=== PATIENT | female | born 1955 | race African-American/Black ===

== ENCOUNTER 2016-05-25 08:30 | Inpatient (IN) ==
--- NOTE | 2016-05-25 09:42 | Emergency Department Note ---
Arrival - Arrival Chief Complaint: Upper Respiratory Stated Complaint: cough,pain,wheezing ED Nursing Triage Note: c/o having coughing and congestion x 2 weeks, denies increase temp., aching all over, + chillls Mode of Arrival: Wheelchair Limitations: No Limitations Source: Patient Time Seen by Provider: 05/25/16 09:26 - History of Present Illness HPI Narrative: This is a 61-year-old white female who states she has a "cold" for approximately 1 month. She states that she has had some cough and congestion but just recently has started having chills. She states the cough is productive but the sputum is clear. She states that she has not checked her fever at home but is just had chills. No other problems noted or reported Onset (ago): month(s) (1) Severity: mild Allergies/Adverse Reactions: Allergies Allergy/AdvReac Type Severity Reaction Status Date / Time blue dye Allergy Vomiting Verified 08/06/15 16:57 Home Medications: Home Medications Medication Instructions Recorded Confirmed Type Unable To Obtain [Unable to Obtain] 05/25/16 05/25/16 History Review of System - Review of System 12 point system: reviewed and no additional remarkable complaints except as stated - Review of System Constitutional: Present: as per HPI, chills. Absent: fever Head/Ears/Nose/Throat: Present: see HPI Respiratory: Present: as per HPI, cough Medical,Surgical,& Family Hx - Medical History Cardio: History of: CHF, Hypertension Endocrine: History of: Diabetes Mellitus (IDDM) Renal: History of: Renal Failure No history of: Dialysis (has not started but has graft to left arm) - Family History Family History: Reports;: Family Diabetes - Social History Smoking Status: Never smoker Frequency of Alcohol Use: None Type of Drug Use: None Exam Vital Signs: Vital Signs Temperature 97.9 F 05/25/16 08:34 Pulse Rate 100 H 05/25/16 08:34 Respiratory Rate 16 05/25/16 09:38 Blood Pressure 165/74 05/25/16 08:34 O2 Sat by Pulse Oximetry 100 05/25/16 08:34 - General General appearance: alert, in no apparent distress - Head Head exam: Present: atraumatic, normocephalic, normal inspection - Eye Eye exam: Present: normal appearance, PERRL, EOMI - ENT ENT exam: Present: normal exam, normal oropharynx - Neck Neck exam: Present: normal inspection, full ROM - Chest Chest inspection: Present: normal inspection, symmetric chest wall rise - Respiratory Respiratory exam: Absent: respiratory distress, wheezes - Cardiovascular Cardiovascular exam: Present: regular rate, normal rhythm, normal heart sounds - Abdominal Exam Abdominal exam: Present: soft, normal bowel sounds - Extremities Exam Extremities exam: Present: normal inspection - Back Exam Back exam: Present: normal inspection - Neurological Exam Neurological exam: Present: alert, oriented X3 - Psychiatric Psychiatric exam: Present: normal affect, normal mood - Skin Skin exam: Present: warm, dry, intact Course - Consultations Consultation #1: I've spoken about the patient with Estelle hospitalist CERTIFIED ALCOHOL AND DRUG COUNSELOR Time: 11:20 Results - Labs CBC & BMP: 05/25/16 09:51 05/25/16 09:51 Lab Results: I have reviewed the patients labs - Diagnostic Findings Procedure: Chest x-ray: image reviewed by me, report reviewed by me (diffuse bilat infiltrates vs. edema) Disposition Clinical Impression: Chronic renal failure, Anemia, Pulmonary infiltrates on CXR Case discussed with: patient Disposition: Still a Patient
[2016-05-25 10:06] LABS: Basophils % 0.1 % (0.0-0.8); Eosinophils # 0.1 10*3/uL (0.0-0.87); Eosinophils % 1.8 % (0.00-10.9); Hematocrit 25.3 VOL% (35.7-47.0); Hemoglobin 7.7 GM/DL (12.0-16.0); Immature Granulocytes % 0.4 %; Immature Granulocytes Absolute 0.03 #; Lymphocytes % 14.6 % (21.3-54.2); Mean Corpuscular HGB Conc 30.4 GM/DL (32-36); Mean Corpuscular Hemoglobin 29 PG (27-34); Mean Corpuscular Volume 94.1 FL (87-102); Mean Platelet Volume 8.9 FL (9.6-12.0); Monocytes # 0.5 10*3/uL (0.11-0.8); Monocytes % 7.2 % (1.7-12.7); Neutrophils # 5.1 10*3/uL (1.4-7.4); Neutrophils % 75.9 % (38.7-73.9); Platelet Count 209 10*3/uL (130-400); Red Blood Count 2.69 10*6/uL (3.8-5.5); Red Cell Distribution Width 16.3 % (9.3-17.3); White Blood Count 6.8 10*3/uL (4.5-13.71)
--- NOTE | 2016-05-25 10:14 | XRay Report ---
History is coughing and fever Comparison 10/22/2009 The heart is enlarged. There is mild chronic vascular prominence There has been interval development of increasing diffuse bilateral reticular and hazy pulmonary opacities without more focal consolidation Impression: Interval development of diffuse bilateral infiltrates versus edema PROCEDURE INTERPRETED AT [facility] DEPARTMENT OF RADIOLOGY Final Report Signed by: Dr. Gisell Palacios
[2016-05-25 10:59] LABS: Calcium 9.5 MG/DL (8.5-10.1); Osmolality,Calculated 314.3 MOS/KG (273-304); Potassium 5.4 MMOL/L (3.5-5.1)
[2016-05-25] MEDS ORDERED: LACTULOSE 20 GM/30 ML UDCUP PO PRN (11:41)
[2016-05-25] MEDS ORDERED: ACETAMINOPHEN 325 MG TABLET PO PRN (11:41)
[2016-05-25] MEDS ORDERED: MORPHINE 2 MG/1 ML SYRINGE IV PRN (11:41)
[2016-05-25] MEDS ORDERED: DEXTROSE 50% 25 GM/50 ML VIAL IV PRN (12:10)
[2016-05-25] MEDS ORDERED: GLUCAGON 1 MG VIAL IM PRN (12:10)
--- NOTE | 2016-05-25 13:01 | Ultrasound Report ---
History is bilateral lower extremity swelling Bilateral lower extremity venous Doppler performed with grayscale, spectral Doppler, and color flow analysis performed and interpreted. No evidence of echogenic, noncompressible thrombus seen in either common femoral, superficial femoral, popliteal, or saphenous veins There are bilateral popliteal cysts measuring 3.3 x 1.1 CM in the right and 2.7 x 1.1 CM on the left Impression: Bilateral popliteal cysts. No evidence of DVT seen in either lower extremity. PROCEDURE INTERPRETED AT [facility] DEPARTMENT OF RADIOLOGY Final Report Signed by: Dr. Gisell Palacios
--- NOTE | 2016-05-25 13:17 | Hospitalist History & Physical ---
Assessment and Plan - Time spent with patient Time spent with patient: Greater than 30 minutes (1) Anemia Status: Acute Assessment and plan: we will admit to telemetry, Consult Dr. Farah to see her, she may require dialysis, todays creatinine same as last checked at Dr. Carl office She is hyperkalemic, Kayexelate has been ordered She is anemic, but is not presently symptomatic, we will wait until Dr. Farah sees the pt, She presents as pulmonary edema, we will do an ECHO, await Lasix orders until Dr. Farah sees her Doppler lower extremities due to increased swelling further labs, lipids, MG, UA PRN meds, DVT prophylaxis routine labs in AM further plan and addendum to follow per Dr. Devine Current Visit: Yes (2) Chronic renal failure Status: Acute Current Visit: Yes History of Present Illness Chief complaint: shortness of breath History of present illness: Ms. Lares is a 61 year old female who presents to the Er today with shortness of breath and cold s/s. She states she has been feeling bad for nearly a month and not gotten any better. She described a dry, hacking, non productive cough. She admits to chills, vomiting and shortness of breath, worse with exertion. denies chest pain, denies headache, diarrhea, or dysuria. She is noted to have 2 -3 + pitting edema to her lower extremities. She says this is worse than her normal, left leg is notably more swollen than the right. She is a pt of Dr. Martinez, last saw him one month ago. Also being follow by Dr. Farah for kidney failure, has been told she is close to needing dialysis but has not started it yet. She says she has chronic anemia and comes to the hospital every few weeks for "shots." She is unsure what kind of shots these are. Has never required a blood transfusion. She tells me that Dr. Martinez told her she probably has CHF but she has never had an ECHO or seen cardiology. Ms. Lares is seen sitting on the side of the bed, minimal conversational dyspnea noted. Her flu was negative today but she looks like she doesn't feel well. Lab work today reveals that she is anemic at 7/24, hyperkalemic with K of 5.4, and also in renal failure. She has not been admitted here for quite some time, there are no old records for review. I spoke with the nurse at Dr. Carl office, her last creatinine there was 6.9 this past December. She has a PMH of CKD, HTN, DM, and CHF. She does not smoke drink or use drugs. Home Medications Medication Instructions Recorded Confirmed Type Calcium Carbonate [Tums Chew Tab] 750 mg PO Q2H PRN 05/25/16 05/25/16 History Carvedilol 6.25 mg PO BID 05/25/16 05/25/16 History Dorzolamide/Timolol Oph Soln 1 drop BOTH EYES BID 05/25/16 05/25/16 History [Cosopt] Doxazosin [Cardura] 4 mg PO DAILY 05/25/16 05/25/16 History Fexofenadine [Mellissa] 180 mg PO DAILY 05/25/16 05/25/16 History Furosemide Tab [Lasix Tab] 40 mg PO DAILY 05/25/16 05/25/16 History Levothyroxine Tab [Synthroid Tab] 25 mcg PO DAILY 05/25/16 05/25/16 History Lisinopril/Hydrochlorothiazide 1 each PO DAILY 05/25/16 05/25/16 History [Zestoretic 20-12.5 mg Tablet] Sodium Bicarb Tab 1,300 mg PO BID 05/25/16 05/25/16 History amLODIPine [Norvasc] 10 mg PO DAILY 05/25/16 05/25/16 History Allergies Allergy/AdvReac Type Severity Reaction Status Date / Time blue dye Allergy Vomiting Verified 08/06/15 16:57 Medical,Surgical,& Family Hx - Medical History Cardio: History of: CHF, Hypertension Endocrine: History of: Diabetes Mellitus (IDDM) Renal: History of: Renal Failure No history of: Dialysis (has not started but has graft to left arm) - Family History Family History: Reports;: Family Diabetes - Social History Smoking Status: Never smoker Frequency of Alcohol Use: None Type of Drug Use: None 12 point system: reviewed and no additional remarkable complaints except as stated Exam - Constitutional General appearance: no acute distress, over weight - Head Head exam: Present: normal inspection, normocephalic - Eye Eye exam: Present: EOMI. Absent: scleral icterus Pupils: Present: GABRIELA, normal accommodation - ENT ENT exam: Present: normal exam, normal oropharynx - Neck Neck exam: Present: normal inspection. Absent: lymphadenopathy - Respiratory Respiratory exam: Present: wheezes (mild expirational on right), other (coarse bibasilar, worse with expiration) - Cardiovascular Cardiovascular exam: Present: regular rate and rhythm. Absent: tachycardia - GI/Abdominal GI/Abdominal exam: Present: normal bowel sounds, soft. Absent: tenderness - Extremities Exam Extremities exam: Present: normal inspection, full ROM. Absent: edema - Back Exam Back exam: Present: normal inspection. Absent: muscle spasm - Neurological Exam Neurological exam: Present: alert, oriented X3 - Psychiatric Psychiatric exam: Present: normal affect, normal mood - Skin Skin exam: Present: normal color, warm, dry Results - Labs CBC & BMP: 05/25/16 09:51 05/25/16 09:51 Lab Results: I have reviewed the past 24 hour labs Quality Measures - VTE Contraindication to Pharmacological VTE Prophylaxis: Thrombocytopenia
[2016-05-25 13:59] LABS: Magnesium 2.4 MG/DL (1.8-2.4); Risk Ratio 3.49; VLDL CHOLESTEROL 19.6 MG/DL
[2016-05-25] MEDS: SODIUM POLYSTYRENE SULFATE 15 GM/60 ML BOTTLE PO SCH ×2 (14:04→22:07)
--- NOTE | 2016-05-25 15:17 | Nephrology Consult Note ---
History of Present Illness Chief complaint: shortness of breath and cough in a patient with chronic kidney disease History of present illness: Ms. Lares is a 61 year old female who was admitted this morning for shortness of breath and cough. The patient states she is been having some rattling in her chest past few days as well as cough. She also reports aching all over. She has some associated shortness of breath. She also describes increased swelling in her legs. Patient states the cough has been productive of whitish sputum. Her shortness of breath and cough for are worse with laying flat in bed. The patient states she takes a water pill at home and states she has been compliant with this. We were asked see the patient for increased BUN/ creatinine creatinine. The patient's creatinine on admission was around 7.1 mg/ dL in December 2015 the patient was noted to have a creatinine of 6.9. Patient also has a potassium of around 5.6. The patient's hematocrit is around 25%. The patient denies any fever she does state she has been having some shaking chills. ROS: Head - denies headaches ENT - denies sore throat Lymphatics - denies lymphadenopathy Hematology - denies bleeding problems Heart - denies chest pain Lungs -positive shortness of breath Abdomen - denies abdominal pain Musculoskeletal - denies arthritis Skin - denies rash Neurology - denies stroke General - denies fever PE: General: in no acute distress Eyes: Pupils are round and reactive, conjunctivae are clear ENT: Nose is clear, O/P is benign Neck: Supple, no thyromegaly Lymphatics: No cervical, supraclavicular or axillary adenopathy Heart: Regular rate and rhythm, 2+ pretibial edema as well as some mild edema in her thighs Lungs: Clear to auscultation anteriorly, chest expansion symmetric Abdomen: Soft, normoactive bowel sounds, no hepatomegaly Musculoskeletal: No joint erythema or effusions or joint asymmetry Skin: Normal turgor, normal hydration, no rash Neuro/Psych: Alert and cooperative with fair insight Home Medications Medication Instructions Recorded Confirmed Type Calcium Carbonate [Tums Chew Tab] 750 mg PO Q2H PRN 05/25/16 05/25/16 History Carvedilol 6.25 mg PO BID 05/25/16 05/25/16 History Dorzolamide/Timolol Oph Soln 1 drop BOTH EYES BID 05/25/16 05/25/16 History [Cosopt] Doxazosin [Cardura] 4 mg PO DAILY 05/25/16 05/25/16 History Fexofenadine [Mellissa] 180 mg PO DAILY 05/25/16 05/25/16 History Furosemide Tab [Lasix Tab] 40 mg PO DAILY 05/25/16 05/25/16 History Levothyroxine Tab [Synthroid Tab] 25 mcg PO DAILY 05/25/16 05/25/16 History Lisinopril/Hydrochlorothiazide 1 each PO DAILY 05/25/16 05/25/16 History [Zestoretic 20-12.5 mg Tablet] Ofloxacin [Ofloxacin 0.3% Oph Soln] 1 drop BOTH EYES QID 05/25/16 05/25/16 History Sodium Bicarb Tab 1,300 mg PO BID 05/25/16 05/25/16 History amLODIPine [Norvasc] 10 mg PO DAILY 05/25/16 05/25/16 History Allergies Allergy/AdvReac Type Severity Reaction Status Date / Time blue dye Allergy Vomiting Verified 08/06/15 16:57 Medical,Surgical,& Family Hx - Medical History Cardio: History of: CHF, Hypertension Endocrine: History of: Diabetes Mellitus (IDDM), Diabetes Mellitus (NIDDM) Renal: History of: Renal Failure No history of: Dialysis (has not started but has graft to left arm) - Surgical History Additional Surgical History: Left arm fistula placement - Family History Family History: Reports;: Family Diabetes - Social History Smoking Status: Never smoker Frequency of Alcohol Use: None Type of Drug Use: None Exam - Vital Signs Vital signs: Period Temp Pulse Resp BP Sys/[place] Pulse Ox Last 24 Hr 68-88 20-20 156/77 97 Results - Labs CBC & BMP: 05/25/16 09:51 05/25/16 09:51 Assessment and Plan (1) Chronic renal failure Status: Acute Assessment and plan: This patient's creatinine is about what it was 6 months ago however she has significant volume overload and her potassiums a little bit worse than it was 6 months ago, she also has metabolic acidosis that is about the same as it was 6 months ago. She seems to be asymptomatic from a uremic standpoint. She states she has had some vomiting but I think she was talking about coughing up cold. We'll see if we can get her better from a shortness of breath standpoint without worsening her renal failure but I have some doubts of whether will be able to pull this off. Current Visit: Yes (2) Shortness of breath Status: Acute Assessment and plan: This patient has marked lower extremity edema and some increased interstitial markings in her lungs. It sounds like she's had some cold symptoms with body aches all over and a persistent cough which confuses the picture whether this is bronchitis versus pulmonary edema related to her volume overload. Her white count is normal although she does have a little bit of a left shift on her differential. I think it's reasonable to try a her on some IV Lasix. Current Visit: Yes (3) Volume overload Status: Acute Current Visit: Yes (4) Hyperkalemia Status: Acute Current Visit: Yes (5) Metabolic acidosis Status: Acute Assessment and plan: I'll start her on some sodium bicarbonate Current Visit: Yes (6) Anemia Status: Acute Assessment and plan: We may want to try and transfuse her later in the hospitalization once we've got her breathing improved Current Visit: Yes
[2016-05-25] MEDS: FUROSEMIDE 40 MG/4 ML VIAL IV SCH (16:28)
[2016-05-25] MEDS: INSULIN LISPRO 100 UNIT/ML SUBCUT SCH ×2 (16:33→22:13)
[2016-05-25] MEDS: LEVOFLOXACIN 250 MG TABLET PO SCH (16:52)
[2016-05-25] MEDS: SODIUM BICARBONATE 650 MG TABLET PO SCH (22:06)
--- NOTE | 2016-05-25 22:07 | ECHO Report ---
Deidre Lares Exam Date: 05/25/2016 12:45 Referring Physician: Technologist: Alejandro CLAIRE Age: 61 Ht (in): Wt (lb): Gender: F Exam Location: [facility] Echo Indications: SOB BP: / HR: Rhythm: Sinus Technical Quality: Fair IMPRESSIONS Normal LV systolic function, ejection fraction 55%. Grade 1/4 diastolic dysfunction. Mild concentric left ventricular hypertrophy. Mild biatrial enlargement. Mildly dilated right ventricle. Mild tricuspid regurgitation. Moderate tricuspid regurgitation. Mild pulmonary hypertension with pulmonary artery pressure estimated at 44 mmHg plus right atrial pressure. Small pericardial effusion. MEASUREMENTS (Male / Female) Normal Values 2D ECHO LV Diastolic Diameter PLAX 4.8 cm 4.2 - 5.9 / 3.9 - 5.3 cm LV Systolic Diameter PLAX 3.2 cm LV Fractional Shortening PLAX 33.1 % IVS Diastolic Thickness 1.3 cm 0.6 - 1.0 / 0.6 - 0.9 cm LVPW Diastolic Thickness 1.2 cm 0.6 - 1.0 / 0.6 - 0.9 cm RV Internal Dim ED PLAX 3.3 cm Aortic Root Diameter 2.9 cm LA Systolic Diameter LX 4.7 cm 3.0 - 4.0 / 2.7 - 3.8 cm DOPPLER TR Peak Velocity 333.0 cm/s TR Peak Gradient 44.4 mmHg FINDINGS Left Ventricle Moderately increased septal wall thickness. Mildly increased posterior wall thickness. Mild concentric left ventricular hypertrophy with diastolic dysfunction. Left ventricular ejection fraction is estimated at 50-55 %. Right Ventricle Mildly increased right ventricular size. Right Atrium The right atrium is mildly enlarged. Left Atrium Mildly increased left atrial diameter. Mitral Valve Mildly thickened mitral valve with mild mitral regurgitation. Aortic Valve Aortic valve sclerosis without stenosis or regurgitation. Tricuspid Valve Morphologically normal tricuspid valve. Moderate tricuspid valve regurgitation. Tricuspid regurgitation velocities suggest a PAP of 44.4 mmHg + RAP. Pulmonic Valve Morphologically normal pulmonic valve. Pericardium Small pericardial effusion. Aorta Normal size aortic root and proximal ascending aorta. Lucia Fitch MD (Electronically Signed) Final Date: 25 May 2016 22:06
[2016-05-26 06:30] LABS: Basophils % 0.1 % (0.0-0.8); Eosinophils # 0.2 10*3/uL (0.0-0.87); Eosinophils % 2.1 % (0.00-10.9); Hematocrit 22.8 VOL% (35.7-47.0); Immature Granulocytes % 0.7 %; Immature Granulocytes Absolute 0.05 #; Lymphocytes # 0.9 10*3/uL (1.4-4.0); Lymphocytes % 12.7 % (21.3-54.2); Mean Corpuscular HGB Conc 30.7 GM/DL (32-36); Mean Corpuscular Hemoglobin 29 PG (27-34); Mean Corpuscular Volume 93.4 FL (87-102); Mean Platelet Volume 9.8 FL (9.6-12.0); Monocytes # 0.6 10*3/uL (0.11-0.8); Monocytes % 7.9 % (1.7-12.7); Neutrophils # 5.4 10*3/uL (1.4-7.4); Neutrophils % 76.5 % (38.7-73.9); Platelet Count 207 10*3/uL (130-400); Red Blood Count 2.44 10*6/uL (3.8-5.5); Red Cell Distribution Width 16.1 % (9.3-17.3); White Blood Count 7.1 10*3/uL (4.5-13.71)
[2016-05-26] MEDS: SODIUM POLYSTYRENE SULFATE 15 GM/60 ML BOTTLE PO SCH (06:53)
[2016-05-26 07:04] LABS: Albumin 2.7 G/DL (3.4-5.0); Bilirubin,Total 0.8 MG/DL (0.2-1.0); Calcium 9.2 MG/DL (8.5-10.1); Potassium 4.9 MMOL/L (3.5-5.1)
[2016-05-26] MEDS: ONDANSETRON 4 MG/2 ML VIAL IV PRN ×2 (09:03→21:03)
[2016-05-26] MEDS: FUROSEMIDE 40 MG/4 ML VIAL IV SCH ×2 (09:04→16:44)
[2016-05-26] MEDS: PANTOPRAZOLE 40 MG TABLET PO SCH (09:04)
[2016-05-26] MEDS: SODIUM BICARBONATE 650 MG TABLET PO SCH ×2 (09:04→20:05)
--- NOTE | 2016-05-26 09:35 | Hospitalist Progress Note ---
Assessment and Plan (1) Chronic renal failure Status: Acute Assessment and plan: Impression: 1. Chronic kidney disease, stage V 2. Hyperkalemia and volume overload, likely related to #1 3. Anemia, likely related to #1 Plan: She might benefit from transfusion, but I hesitate to do this unless we are ready for dialysis. We'll await nephrology decision in that regard. Otherwise , continue current care. Follow lab. This note was completed using [employer] voice recognition software. There may be manga artist errors as a result. Current Visit: Yes Hospitalist: Subjective Interval history: Follow-up chronic kidney disease with possible volume overload. The patient complains of some edema in the left lower extremity. This was present on admission, and a venous Doppler was negative. She apparently has stage V chronic kidney disease which is unchanged over the past few months, and there is some question as to whether or not we need to institute dialysis. Nephrology is following the patient along with us. She complains of some pain in both knees. She denies any worsening dyspnea or chest discomfort. Exam - Constitutional Vitals: Period Temp Pulse Resp BP Sys/[place] Pulse Ox Last 24 Hr 97.6 F-99.2 F 68-107 16-21 153-177/68-81 93-97 Heart is regular with distant tones and a 1/6 systolic ejection murmur. She has decreased breath sounds in both bases. There is a millimeter or 2 of edema in the left lower extremity. Both knees are tender to palpation, but she doesn't have an effusion on either knee. Results - Labs CBC & BMP: 05/26/16 05:40 05/26/16 05:40 Lab Results: I have reviewed the past 24 hour labs (creatinine is fairly stable. Hemoglobin is trending down slowly.) Quality Measures - VTE Contraindication to Pharmacological VTE Prophylaxis: Thrombocytopenia
[2016-05-26] MEDS: INSULIN LISPRO 100 UNIT/ML SUBCUT SCH ×4 (10:06→21:08)
--- NOTE | 2016-05-26 10:57 | Nephrology Progress Note ---
Nephrology - PN: Subj Interval history: Patient complains of pain in her left knee, review of systems pulmonary-she states she is breathing okay Physical exam general the patient's in no acute distress, she has 1-2+ pretibial edema Assessment/plan 1. Chronic kidney disease stage V-this patient's creatinine is stable to slightly better than it was on admission yesterday. We'll continue to monitor this 2. Hyperkalemia-patient's potassium is improved to 4.9 no equivalent per liter , I'm going to stop her Kayexalate at this point 3. Anemia-patient's hematocrit is down to around 23% from 25%-I'm going to Hemoccult her stool and check iron studies 4. Metabolic acidosis we'll continue sodium bicarbonate 5. Hypernatremia we'll continue monitor this 6. Left knee pain-I'm going to check a uric acid level. Exam (PN)-Nephrology - Vital Signs Vital signs: Period Temp Pulse Resp BP Sys/[place] Pulse Ox Last 24 Hr 97.6 F-99.2 F 68-107 16-21 153-177/68-81 93-97 - Lab 05/26/16 05:40 05/26/16 05:40 Most recent lab results Calcium 9.2 MG/DL (8.5-10.1) 05/26/16 05:40 Magnesium 2.4 MG/DL (1.8-2.4) 05/25/16 09:51 Assessment and Plan (1) Chronic renal failure Status: Acute Assessment and plan: This patient's creatinine is about what it was 6 months ago however she has significant volume overload and her potassiums a little bit worse than it was 6 months ago, she also has metabolic acidosis that is about the same as it was 6 months ago. She seems to be asymptomatic from a uremic standpoint. She states she has had some vomiting but I think she was talking about coughing up cold. We'll see if we can get her better from a shortness of breath standpoint without worsening her renal failure but I have some doubts of whether will be able to pull this off. Current Visit: Yes (2) Shortness of breath Status: Acute Assessment and plan: This patient has marked lower extremity edema and some increased interstitial markings in her lungs. It sounds like she's had some cold symptoms with body aches all over and a persistent cough which confuses the picture whether this is bronchitis versus pulmonary edema related to her volume overload. Her white count is normal although she does have a little bit of a left shift on her differential. I think it's reasonable to try a her on some IV Lasix. Current Visit: Yes (3) Volume overload Status: Acute Current Visit: Yes (4) Hyperkalemia Status: Acute Current Visit: Yes (5) Metabolic acidosis Status: Acute Assessment and plan: I'll start her on some sodium bicarbonate Current Visit: Yes (6) Anemia Status: Acute Assessment and plan: We may want to try and transfuse her later in the hospitalization once we've got her breathing improved Current Visit: Yes
[2016-05-26 13:28] LABS: Apearance,Urine CLEAR (Clear); Bacteria,Urine Occasional /HPF (Few); Bilirubin,Urine Negative (Negative); Blood, Urine Large mg/dL (Negative); Glucose,Urine (UA) 50 mg/dL (Negative); Ketones,Urine Negative (Negative); Nitrite,Urine Negative (Negative); Protein,Urine 100 MG/DL; RBC,Urine 250 /HPF (0-4); Squamous Epithelial Cell,Urine Occasional /HPF (0-10); Urine Color Straw (Yellow); Urine Specific Gravity 1.011 (1.001-1.035); Urine Urobilinogen < 2.0 EU/DL (0.2-1.0); WBC,Urine 14 /HPF (0-6)
[2016-05-27 06:28] LABS: Calcium 8.8 MG/DL (8.5-10.1); Osmolality,Calculated 315.4 MOS/KG (273-304); Potassium 4.6 MMOL/L (3.5-5.1)
--- NOTE | 2016-05-27 08:21 | Nephrology Progress Note ---
Nephrology - PN: Subj Interval history: Patient states she is feeling better and breathing better. Review of systems GI she denies nausea or vomiting Physical exam general patient's chronically ill-appearing, her weight is up about 2 KG's from her admission weight Assessment/plan 1. Chronic kidney disease stage V-patient's creatinine stable at 7 mg/dL, the patient has a left arm fistula, it has a high-pitched bruit I'm going to ask radiology to do a low volume fistulogram to see if they can do some angioplasty to open it up. 2. Metabolic acidosis-this is improving we'll continue bicarbonate replacement 3. Hypertension 4. Volume overload-I'm going to increase her Lasix to 160 mg IV twice a day, symptomatically she is better however her weights would suggest that she is up on her fluid volume Exam (PN)-Nephrology - Vital Signs Vital signs: Period Temp Pulse Resp BP Sys/Valverde Pulse Ox Last 24 Hr 97.8 F-99.7 F 84-102 16-20 117-156/52-67 94-98 - Lab 05/26/16 05:40 05/27/16 04:52 Most recent lab results Calcium 8.8 MG/DL (8.5-10.1) 05/27/16 04:52 Magnesium 2.4 MG/DL (1.8-2.4) 05/25/16 09:51 Assessment and Plan (1) Chronic renal failure Status: Acute Assessment and plan: This patient's creatinine is about what it was 6 months ago however she has significant volume overload and her potassiums a little bit worse than it was 6 months ago, she also has metabolic acidosis that is about the same as it was 6 months ago. She seems to be asymptomatic from a uremic standpoint. She states she has had some vomiting but I think she was talking about coughing up cold. We'll see if we can get her better from a shortness of breath standpoint without worsening her renal failure but I have some doubts of whether will be able to pull this off. Current Visit: Yes (2) Shortness of breath Status: Acute Assessment and plan: This patient has marked lower extremity edema and some increased interstitial markings in her lungs. It sounds like she's had some cold symptoms with body aches all over and a persistent cough which confuses the picture whether this is bronchitis versus pulmonary edema related to her volume overload. Her white count is normal although she does have a little bit of a left shift on her differential. I think it's reasonable to try a her on some IV Lasix. Current Visit: Yes (3) Volume overload Status: Acute Current Visit: Yes (4) Hyperkalemia Status: Acute Current Visit: Yes (5) Metabolic acidosis Status: Acute Assessment and plan: I'll start her on some sodium bicarbonate Current Visit: Yes (6) Anemia Status: Acute Assessment and plan: We may want to try and transfuse her later in the hospitalization once we've got her breathing improved Current Visit: Yes
--- NOTE | 2016-05-27 08:49 | Hospitalist Progress Note ---
Assessment and Plan (1) Chronic renal failure Status: Acute Assessment and plan: Impression: 1. Chronic kidney disease, stage V 2. Hyperkalemia and volume overload, likely related to #1. This appears to be improving 3. Anemia, likely related to #1 Plan: Nephrology has ordered a fistulogram. Continue diuretics, bicarbonate, and other medications. No changes planned for today. This note was completed using [employer] voice recognition software. There may be bar gauger and lubricator tender errors as a result. Current Visit: Yes Hospitalist: Subjective Interval history: Follow-up chronic kidney disease, hypertension, type II DM. The patient says that she feels pretty good. She reports no new complaints. She denies any worsening dyspnea. She thinks that the swelling in her left leg may have improved a bit since yesterday. Exam - Constitutional Vitals: Period Temp Pulse Resp BP Sys/Valverde Pulse Ox Last 24 Hr 97.8 F-99.7 F 84-102 16-20 117-156/52-67 94-98 Heart is regular with a soft systolic murmur. She is moving air fairly well with no rales or wheezes. She may have a millimeter of edema in the left lower extremity. This looks better than yesterday. Results - Labs CBC & BMP: 05/26/16 05:40 05/27/16 04:52 Lab Results: I have reviewed the past 24 hour labs (kidney function and electrolytes remained fairly stable compared to the past day or so.) Quality Measures - VTE Contraindication to Pharmacological VTE Prophylaxis: Thrombocytopenia
[2016-05-27] MEDS: SODIUM BICARBONATE 650 MG TABLET PO SCH ×2 (09:16→20:39)
[2016-05-27] MEDS: PANTOPRAZOLE 40 MG TABLET PO SCH (09:16)
[2016-05-27] MEDS: FUROSEMIDE 40 MG/4 ML VIAL IV SCH ×2 (09:17→15:56)
[2016-05-27] MEDS: INSULIN LISPRO 100 UNIT/ML SUBCUT SCH ×4 (09:18→20:30)
[2016-05-27] MEDS: LEVOFLOXACIN 250 MG TABLET PO SCH (16:58)
--- NOTE | 2016-05-28 10:00 | Post Interventional Procedure ---
Pre-op diagnosis: nonfunctioning left arm AV graft Post-op diagnosis: same Procedure: Attempted fistulogram and declot Contrast: 10 mL Flouroscopy: 15.1 min Radiologist: Tacho Purcell Anesthesia: local Specimens: none sent Estimated blood loss: none Complications: none Condition: stable Description/Findings: Initially, the graft was accessed with ultrasound guidance and the wire was noted to be passing centrally into the arterial system, therefore a separate access was then obtained with fluoroscopic guidance toward the venous anastomosis. The 6 Dutch sheath was placed in the spine multiple attempts, the venous anastomosis could not be recannulated. Brief contrast injection demonstrates extravasation into the perivascular tissues. Again multiple attempts with the roadrunner and Glidewire were performed but the venous anastomosis could not be recannulated, therefore declotting and flow could not be restored. Dr. Sawant the third was notified of the results and need for repeat graft placement. Interventional radiology would be happy to place a tunneled dialysis catheter for dialysis access, if needed urgently. Assessment and Plan - Time spent with patient Time spent with patient: Greater than 30 minutes (1) Clotted dialysis access Problem details: this AV graft was placed >2 yrs ago per patient and has not been used Status: Acute Assessment and plan: Patient is progressing towards end-stage renal disease and needs dialysis access. Unfortunately, the graft could not be recannulated. Surgery was notified. Intervention radiology would be happy to place a tunneled dialysis catheter for dialysis access. Current Visit: Yes (2) Chronic renal failure Problem details: CKD stage V progressing to ESRD and HD Status: Acute Assessment and plan: Left arm arteriovenous dialysis graft could not be recannulated. Planning for long-term dialysis access is required. Interventional radiology would be happy to place a tunneled dialysis catheter if needed. Current Visit: Yes
[2016-05-28] MEDS: INSULIN LISPRO 100 UNIT/ML SUBCUT SCH ×4 (10:05→21:23)
[2016-05-28] MEDS: FUROSEMIDE 40 MG/4 ML VIAL IV SCH ×2 (10:06→16:43)
[2016-05-28] MEDS: PANTOPRAZOLE 40 MG TABLET PO SCH (10:09)
[2016-05-28] MEDS: SODIUM BICARBONATE 650 MG TABLET PO SCH ×2 (10:10→21:22)
--- NOTE | 2016-05-28 10:15 | Nephrology Progress Note ---
Nephrology - PN: Subj Interval history: Patient reports breathing is improved from her admission. Review of systems GI she denies nausea or vomiting, Gen.-the patient has some difficulty ambulating related to her left knee, cardiac-patient feels like her swelling is decreased Physical exam general patient is chronically ill-appearing, she has 1-2+ pretibial edema, her weight is increased about 3 KG's from admission. Assessment/plan 1. Chronic kidney disease stage V-we'll recheck a BMP in the morning, patient is largely asymptomatic from a uremic standpoint. 2. Congestive heart failure-patient seems to be compensated, although it is concerning that her Weight has been increasing despite aggressive diuretic regimen. 3. Anemia 4. Hyperkalemia this is improved 5. Hypertension continue present antihypertensives Exam (PN)-Nephrology - Vital Signs Vital signs: Period Temp Pulse Resp BP Sys/Valverde Pulse Ox Last 24 Hr 97.3 F-99.3 F 86-96 16-20 134-193/57-81 95-98 - Lab 05/26/16 05:40 05/27/16 04:52 Most recent lab results Calcium 8.8 MG/DL (8.5-10.1) 05/27/16 04:52 Magnesium 2.4 MG/DL (1.8-2.4) 05/25/16 09:51 Assessment and Plan (1) Chronic renal failure Problem details: CKD stage V progressing to ESRD and HD Status: Acute Assessment and plan: This patient's creatinine is about what it was 6 months ago however she has significant volume overload and her potassiums a little bit worse than it was 6 months ago, she also has metabolic acidosis that is about the same as it was 6 months ago. She seems to be asymptomatic from a uremic standpoint. She states she has had some vomiting but I think she was talking about coughing up cold. We'll see if we can get her better from a shortness of breath standpoint without worsening her renal failure but I have some doubts of whether will be able to pull this off. Current Visit: Yes (2) Shortness of breath Status: Acute Assessment and plan: This patient has marked lower extremity edema and some increased interstitial markings in her lungs. It sounds like she's had some cold symptoms with body aches all over and a persistent cough which confuses the picture whether this is bronchitis versus pulmonary edema related to her volume overload. Her white count is normal although she does have a little bit of a left shift on her differential. I think it's reasonable to try a her on some IV Lasix. Current Visit: Yes (3) Volume overload Status: Acute Current Visit: Yes (4) Hyperkalemia Status: Acute Current Visit: Yes (5) Metabolic acidosis Status: Acute Assessment and plan: I'll start her on some sodium bicarbonate Current Visit: Yes (6) Anemia Status: Acute Assessment and plan: We may want to try and transfuse her later in the hospitalization once we've got her breathing improved Current Visit: Yes
--- NOTE | 2016-05-28 10:33 | Interventional Radiology Rpt ---
IR Dialysis Angiography IR Declot Clinical Information: CKD stage V progressing to End stage renal disease. Thrombosed dialysis graft. The graft was placed approximately 2 yrs ago and has not been used. Physician(s): Dr. Purcell Procedure: The patient was advised of the benefits, risks, and alternatives of the procedure and informed consent was obtained. A time out was performed with verification of the patient's name, MRN, site of procedure, and type of procedure to be performed. The patient was positioned in the supine position on the angiographic table. The site was prepped and draped in the usual sterile fashion. Local anesthesia was used for the procedure. A health officer radiograph reveals no relevant abnormality. 2% lidocaine was used for local anesthesia. Initially, the graft was occluded so flow direction could not be assessed. The initial puncture was made and the micro-stick catheter was placed. The Glidewire was advanced and noted to be within the arterial system. The Micro-Stick sheath was then left in place. A second antegrade puncture was made closer to the arterial anastomosis with a micropuncture set. A glidewire was passed centrally and a 6 [place] short sheath placed. A 4 [place] Kumpe catheter was advanced over the wire into the dialysis graft. Despite careful manipulation, the wire could not cannulate the venous anastomosis. Brief venograms demonstrate extravasation of contrast in the perivascular tissues. At this point, significant time had been expanded with no progress and, therefore, the procedure was terminated. The sheaths were removed and pressure was held to obtain hemostasis. Sterile dressings were applied. The patient was transferred to the inpatient room. The patient tolerated the procedure well without immediate complication. EBL: <5 ml Complications: None. Total fluoroscopy time: 15.1 minutes Conclusion: 1. Failed recannulization and percutaneous thrombectomy of the left arm dialysis graft. Interventional radiology would be happy to place a tunneled dialysis catheter for dialysis access if needed at this time. 2. Surgery was notified. PROCEDURE INTERPRETED AT [facility] DEPARTMENT OF RADIOLOGY Final Report Signed by: Tacho Purcell
[2016-05-28] MEDS ORDERED: LIDOCAINE 2% 5 ML VIAL ONE (10:45)
[2016-05-28] MEDS ORDERED: PROPOFOL 200 MG/20 ML VIAL IV ONE (10:45)
[2016-05-28] MEDS ORDERED: ONDANSETRON 4 MG/2 ML VIAL ONE (10:45)
[2016-05-28] MEDS ORDERED: HEPARIN 5,000 UNIT/1 ML VIAL ONE (13:39)
[2016-05-28] MEDS ORDERED: LIDOCAINE 1%/EPI INJ 20 ML VIAL ONE (13:40)
[2016-05-28] MEDS ORDERED: BUPIVACAINE MPF 0.25% /EPI 30 ML VIAL ONE (13:40)
--- NOTE | 2016-05-28 13:45 | Event Note ---
Patient had a study done of her left upper arm arteriovenous fistula which is occluded. She now needs dialysis access and I have discussed tunneled dialysis catheter placement in detail along with the risk. She her family understand the risk of infection, blood clots, bleeding, pneumothorax, etc. They understand and wish to proceed
[2016-05-28] MEDS ORDERED: SODIUM CHLORIDE 0.9% 250 ML IV PRN (14:39)
--- NOTE | 2016-05-28 14:41 | Operative Note ---
Date of procedure: 05/28/16 Pre-op diagnosis: chronic renal failure Post-op diagnosis: same Procedure: 19 cm tunneled hemodialysis catheter right internal jugular vein under ultrasound and fluoroscopic guidance Findings and technique: After informed consent was obtained patient brought the operating room and placed in spine position. After IV sedation was administered the patient's neck and chest was prepped and draped in usual sterile fashion. Local anesthesia was infiltrated and a sterile ultrasound probe placed over the right neck were the internal jugular vein was easily identified and accessed with a single stick. Guidewire was advanced under fluoroscopy without resistance and a stab incision made at the guidewire puncture site and a separate stab incision made beneath the right clavicle. The catheter was tunneled between the 2 incisions and an introducer sheath passed over the guidewire without resistance and the guidewire removed. Catheter was introduced in position with the tip in the superior vena cava under fluoroscopy and the catheters were then easily accessed aspirated and flushed. The incision in the neck was closed interrupted 3-0 nylon suture and the catheter sutured to the skin. Anesthesia: MAC, local Surgeon / Physician: Armani Sawant III. Estimated blood loss: minimal Specimens: none sent Condition: stable Disposition: PACU Results - Labs CBC & BMP: 05/26/16 05:40 05/27/16 04:52 Discharge Plan - Discharge Medications No Action Dorzolamide/Timolol Oph Soln [Cosopt] 1 drop BOTH EYES BID Calcium Carbonate [Tums Chew Tab] 750 mg PO Q2H PRN PRN Reason: Indigestion Furosemide Tab [Lasix Tab] 40 mg PO DAILY amLODIPine [Norvasc] 10 mg PO DAILY Fexofenadine [Mellissa] 180 mg PO DAILY Carvedilol 6.25 mg PO BID Doxazosin [Cardura] 4 mg PO DAILY Ofloxacin [Ofloxacin 0.3% Oph Soln] 1 drop BOTH EYES QID Sodium Bicarb Tab 1,300 mg PO BID Lisinopril/Hydrochlorothiazide [Zestoretic 20-12.5 mg Tablet] 1 each PO DAILY Levothyroxine Tab [Synthroid Tab] 25 mcg PO DAILY - Follow Up or Referral - Forms/Instructions
--- NOTE | 2016-05-28 14:46 | Hospitalist Progress Note ---
Assessment and Plan (1) End stage renal disease Status: Acute Assessment and plan: dialysis mart Current Visit: Yes (2) Hypertension Status: Acute Assessment and plan: restarted coreg, norvasc and cardura Current Visit: Yes (3) Anemia Status: Acute Assessment and plan: 2 unit of PRBC on dialysis Current Visit: Yes (4) Shortness of breath Status: Acute Assessment and plan: volume overload due to ESRD, cont lasix IV dialysis mart, solumedrol and duonebs Current Visit: Yes (5) Volume overload Status: Acute Assessment and plan: ESRD needs dialysis Current Visit: Yes (6) Clotted dialysis access Problem details: this AV graft was placed >2 yrs ago per patient and has not been used Status: Acute Assessment and plan: dialysis catheter placed Current Visit: Yes (7) LEAH (obstructive sleep apnea) Status: Acute Assessment and plan: Dr patton to see Current Visit: Yes Hospitalist: Subjective Interval history: Patient's fistula is clotted off. I spoke with Dr. Sawant the third today and he is going to put a dialysis catheter in today. Exam - Constitutional Vitals: Period Temp Pulse Resp BP Sys/Valverde Pulse Ox Last 24 Hr 97.3 F-99.3 F 86-96 16-20 134-193/57-81 95-97 Exam: Heart Rate-[RRR] Lungs-[diminished and diffuse wheezing] GI-[+bs soft, NT] Ext-[no edema] neuro alert and oriented times 3, motor 4/5 psych normal mood and affect general no acute distress Results - Labs CBC & BMP: 05/26/16 05:40 05/27/16 04:52 Lab Results: I have reviewed the past 24 hour labs - Diagnostic Findings Procedure: X-ray: report reviewed by me (Failed recanalization a percutaneous thrombectomy of the left arm dialysis graft.) Quality Measures - VTE Contraindication to Pharmacological VTE Prophylaxis: Thrombocytopenia
--- NOTE | 2016-05-28 14:46 | Anesthesia ---
Anesthesia Post OP - Post Ansesthetic Evaluation Patient seen in post op: Yes Resp: within normal limits CV: within normal limits Mental: within normal limits Temp: within normal limits [id number]: within normal limits Nausea and Vomiting: within normal limits Pain: within normal limits
[2016-05-28] MEDS ORDERED: fentaNYL 100 MCG/2 ML VIAL ONE (14:48)
[2016-05-28] MEDS ORDERED: MIDAZOLAM 2 MG/2 ML VIAL ONE (14:48)
[2016-05-28] MEDS ORDERED: CALCIUM CARBONATE CHEW 500 MG TABLET PO PRN (15:00)
[2016-05-28 15:02] LABS: Hemoglobin 6.7 GM/DL (12.0-16.0)
--- NOTE | 2016-05-28 15:06 | XRay Report ---
Referring Physician: ALFONSO Sawant III Exam: XR chest 1V portable Date: May 28, 2016 at 2:39 PM Reason: Dialysis catheter placement Comparison: Chest one view portable May 25, 2016 Findings: A right-sided dialysis catheter is present with its distal tip within the SVC. The cardiac silhouette is again enlarged, and there is prominent calcified plaque at the thoracic aorta. The interstitial markings are prominent bilaterally, and there are minimal bibasilar opacities. This likely represents mild pulmonary edema and atelectasis. No pneumothorax is identified, but there may be minimal bilateral pleural fluid. The osseous structures appear stable. Impression: 1. There has been interval placement of a right-sided dialysis catheter with its distal tip within the SVC. 2. There is suggestion of mild pulmonary edema and atelectasis. This may have slightly improved. PROCEDURE INTERPRETED AT [facility] DEPARTMENT OF RADIOLOGY Final Report Signed by: Dr. Keerthi Kellogg
[2016-05-28] MEDS: ALBUTEROL/IPRATROPIUM 3 ML NEB RESP TX SCH ×3 (15:56→23:43)
--- NOTE | 2016-05-28 16:01 | Interventional Radiology Rpt ---
IR fluoro guide cv cath Clinical Information: [employer] DIALYS[employer] CATHETER INSERTION fluoroscopic images. Total fluoroscopy time: 5 seconds. Findings: Intraoperative fluoroscopy images demonstrate right internal jugular dialysis catheter with the tip near the lower third of the superior vena cava. Images were evaluated by the attending physician at the time of the procedure. Impression: Intraoperative fluoroscopy PROCEDURE INTERPRETED AT [facility] DEPARTMENT OF RADIOLOGY Final Report Signed by: Tacho Purcell
[2016-05-28] MEDS: methylPREDNISolone SOD SUC 40 MG/1 ML VIAL IV SCH ×2 (16:43→23:43)
[2016-05-28] MEDS: CARVEDILOL 6.25 MG TABLET PO SCH (16:47)
[2016-05-28] MEDS: DORZOLAMIDE/TIMOLOL OPH SOLN 10 ML BOTTLE BOTH EYES SCH ×2 (18:36→21:23)
[2016-05-28] MEDS: OFLOXACIN 0.3% OPH SOLN 10 ML BOTTLE BOTH EYES SCH ×2 (18:38→21:00)
--- NOTE | 2016-05-28 20:33 | Sleep Medicine Consult ---
Assessment and Plan (1) LEAH (obstructive sleep apnea) Status: Acute Assessment and plan: This patient apparently underwent evaluation by Dr. Chavira a couple years ago for sleep apnea. She is no longer on CPAP therapy due to intolerance of CPAP. I have looked for her records in the sleep lab to night but was unable to find them. We will check back with the lab personnel tomorrow to try to those records. Nevertheless, she needs reevaluation of her known obstructive sleep apnea with the severity of her health issues and symptoms. Thank you for this consult the opportunity to despite in her care. Current Visit: Yes (2) Hypertension Status: Acute Assessment and plan: The prevalence rate for obstructive sleep apnea patients with hypertension is 35 %. That rate can be as high as 80% in patients who require 4 or more medications for blood pressure control. Current Visit: Yes (3) Type 2 diabetes mellitus Status: Acute Assessment and plan: The prevalence rate for obstructive sleep apnea in patients with type 2 diabetes can be as high as 86%. Those patients with moderate to severe obstructive sleep apnea are at a greater risk for diabetic nephropathy and neuropathy. Compliance with CPAP therapy for these patients can lead to improvement in glycemic control and improvement in insulin sensitivity. Current Visit: Yes History of Present Illness Chief complaint: sleep apnea History of present illness: Ms. Lares is a 61 year old female admitted with his stage renal disease and it is anticipated that she will soon go on hemodialysis. Dr. Sawant placed a fistula in her today for hemodialysis. Dr. Perry asked me to see her for sleep apnea. She apparently had an evaluation for obstructive sleep apnea a few years ago by Dr. Chavira and was placed on CPAP but could not tolerate it and is no longer on CPAP. She continues to snore and have abnormal breathing during sleep along with distorted sleep daytime fatigue and sleepiness. She usually retires about 6 p.m. but has no set sleep time. She has a hard time staying asleep and will awaken several times. She fights fatigue and sleepiness during the day. Her STOP BANG score is 5 but her [place] sleepiness score is 9. Home Medications Medication Instructions Recorded Confirmed Type Calcium Carbonate [Tums Chew Tab] 750 mg PO Q2H PRN 05/25/16 05/25/16 History Carvedilol 6.25 mg PO BID 05/25/16 05/25/16 History Dorzolamide/Timolol Oph Soln 1 drop BOTH EYES BID 05/25/16 05/25/16 History [Cosopt] Doxazosin [Cardura] 4 mg PO DAILY 05/25/16 05/25/16 History Fexofenadine [Mellissa] 180 mg PO DAILY 05/25/16 05/25/16 History Furosemide Tab [Lasix Tab] 40 mg PO DAILY 05/25/16 05/25/16 History Levothyroxine Tab [Synthroid Tab] 25 mcg PO DAILY 05/25/16 05/25/16 History Lisinopril/Hydrochlorothiazide 1 each PO DAILY 05/25/16 05/25/16 History [Zestoretic 20-12.5 mg Tablet] Ofloxacin [Ofloxacin 0.3% Oph Soln] 1 drop BOTH EYES QID 05/25/16 05/25/16 History Sodium Bicarb Tab 1,300 mg PO BID 05/25/16 05/25/16 History amLODIPine [Norvasc] 10 mg PO DAILY 05/25/16 05/25/16 History Allergies Allergy/AdvReac Type Severity Reaction Status Date / Time blue dye Allergy Vomiting Verified 08/06/15 16:57 Review of systems: Otherwise unremarkable other than as stated in HPI. Exam (Pulmonay) H&P - Constitutional Vitals: Period Temp Pulse Resp BP Sys/Valverde Pulse Ox Last 24 Hr 97.5 F-99.3 F 73-96 16-20 144-224/59-85 93-100 Exam: She is alert and responsive in no acute distress. She has a neck circumference of over 17 inches. Pupils equal, round, reactive to light and accommodation. Oropharynx with class IV Mallampati exam. Neck supple without adenopathy or thyromegaly. No supraclavicular adenopathy is noted. Chest was symmetrical breath sounds without focal wheezes, rhonchi, or rales. Cardiac exam reveals a regular rhythm without murmur or gallop. Abdomen obese nontender without palpable hepatosplenomegaly or mass. Extremities without increased edema clubbing. Neurologically, she is grossly intact. She moves all extremities with good strength. Medical,Surgical,& Family Hx - Medical History Cardio: History of: CHF, Hypertension Endocrine: History of: Diabetes Mellitus (IDDM), Diabetes Mellitus (NIDDM) Renal: History of: Renal Failure No history of: Dialysis (has not started but has graft to left arm) - Family History Family History: Reports;: Family Diabetes - Social History Smoking Status: Never smoker Frequency of Alcohol Use: None Type of Drug Use: None Results - Labs CBC & BMP: 05/28/16 14:52 05/28/16 14:52 Lab Results: I have reviewed the past 24 hour labs Labs: Thyroid function studies not done Quality Measures - VTE Contraindication to Pharmacological VTE Prophylaxis: Thrombocytopenia
[2016-05-28] MEDS: amLODIPine 10 MG TABLET PO SCH (21:22)
[2016-05-29] MEDS: ALBUTEROL/IPRATROPIUM 3 ML NEB RESP TX SCH ×5 (03:36→20:08)
[2016-05-29 03:42] LABS: Albumin 2.6 G/DL (3.4-5.0); Calcium 9.2 MG/DL (8.5-10.1); Osmolality,Calculated 314.7 MOS/KG (273-304); Phosphorous 7.8 MG/DL (2.5-4.9); Potassium 4.5 MMOL/L (3.5-5.1)
[2016-05-29] MEDS: methylPREDNISolone SOD SUC 40 MG/1 ML VIAL IV SCH (06:00)
[2016-05-29] MEDS: LEVOTHYROXINE 25 MCG TABLET PO SCH (06:04)
--- NOTE | 2016-05-29 07:09 | Sleep Medicine Progress Note ---
Assessment and Plan (1) LEAH (obstructive sleep apnea) Status: Acute Assessment and plan: Await review of old records prior to proceeding with evaluation or treatment. Current Visit: Yes (2) Hypertension Status: Acute Current Visit: Yes (3) Type 2 diabetes mellitus Status: Acute Current Visit: Yes Sleep Medicine Subjective Interval history: We will need to try and find her prior sleep study results prior to deciding next course of action. We may just have to do titration of CPAP but will have to obtain old records to know. Exam (Progress Note) - Constitutional Vitals: Period Temp Pulse Resp BP Sys/Valverde Pulse Ox Last 24 Hr 97.5 F-99.6 F 73-96 16-20 156-224/59-85 93-100 Results - Labs CBC & BMP: 05/28/16 14:52 05/29/16 02:21 Lab Results: I have reviewed the past 24 hour labs
[2016-05-29] MEDS: FUROSEMIDE 40 MG/4 ML VIAL IV SCH ×2 (08:30→15:35)
[2016-05-29] MEDS: INSULIN LISPRO 100 UNIT/ML SUBCUT SCH ×4 (08:30→21:04)
[2016-05-29] MEDS: OFLOXACIN 0.3% OPH SOLN 10 ML BOTTLE BOTH EYES SCH ×4 (08:30→22:14)
[2016-05-29] MEDS: DORZOLAMIDE/TIMOLOL OPH SOLN 10 ML BOTTLE BOTH EYES SCH ×2 (08:30→22:14)
[2016-05-29 08:33] LABS: Hepatitis A Ab IgM Quant 0.06 Index; Hepatitis A Ab IgM Result Negative (Negative); Hepatitis B Core IgM Quant 0.16 Index; Hepatitis B Core IgM Result Negative (Negative); Hepatitis C Virus Ab Quant 0.08 Index; Hepatitis C Virus Ab Result Negative (Negative)
--- NOTE | 2016-05-29 10:26 | Nephrology Progress Note ---
Nephrology - PN: Subj Interval history: Patient is seen on hemodialysis, she is tolerating this well. She continues to complain of knee pain but states it is some better Physical exam general patient's chronically ill-appearing, extremities reveal 2 + pretibial edema, her weight is actually down about 3 KG's from yesterday (I'm not sure how accurate her weights are) Assessment/plan 1. End-stage renal disease-this patient is a new start on dialysis, we will plan on dialysis today and tomorrow and the following day. I' ll consult social sciences professor to help with placement to an outpatient dialysis center 2. Congestive heart failure-we will pull 2 L fluid off today as tolerated on hemodialysis 3. Anemia-patient's get 2 units packed red blood cells on dialysis today 4. Hypertension we'll continue her present antihypertensives, hopefully with some volume removal on hemodialysis her blood pressure will improve. Exam (PN)-Nephrology - Vital Signs Vital signs: Period Temp Pulse Resp BP Sys/[place] Pulse Ox Last 24 Hr 97.5 F-99.6 F 73-91 16-20 156-224/59-86 93-100 - Lab 05/28/16 14:52 05/29/16 02:21 Most recent lab results Calcium 9.2 MG/DL (8.5-10.1) 05/29/16 02:21 Magnesium 2.4 MG/DL (1.8-2.4) 05/25/16 09:51 Phosphorus 7.8 MG/DL (2.5-4.9) H 05/29/16 02:21 Assessment and Plan (1) Chronic renal failure Problem details: CKD stage V progressing to ESRD and HD Status: Acute Assessment and plan: This patient's creatinine is about what it was 6 months ago however she has significant volume overload and her potassiums a little bit worse than it was 6 months ago, she also has metabolic acidosis that is about the same as it was 6 months ago. She seems to be asymptomatic from a uremic standpoint. She states she has had some vomiting but I think she was talking about coughing up cold. We'll see if we can get her better from a shortness of breath standpoint without worsening her renal failure but I have some doubts of whether will be able to pull this off. Current Visit: Yes (2) Shortness of breath Status: Acute Assessment and plan: This patient has marked lower extremity edema and some increased interstitial markings in her lungs. It sounds like she's had some cold symptoms with body aches all over and a persistent cough which confuses the picture whether this is bronchitis versus pulmonary edema related to her volume overload. Her white count is normal although she does have a little bit of a left shift on her differential. I think it's reasonable to try a her on some IV Lasix. Current Visit: Yes (3) Volume overload Status: Acute Current Visit: Yes (4) Hyperkalemia Status: Acute Current Visit: Yes (5) Metabolic acidosis Status: Acute Assessment and plan: I'll start her on some sodium bicarbonate Current Visit: Yes (6) Anemia Status: Acute Assessment and plan: We may want to try and transfuse her later in the hospitalization once we've got her breathing improved Current Visit: Yes
[2016-05-29] MEDS: CARVEDILOL 6.25 MG TABLET PO SCH (14:08)
[2016-05-29] MEDS: DOXAZOSIN 4 MG TABLET PO SCH (14:09)
[2016-05-29] MEDS: FEXOFENADINE 180 MG TABLET PO SCH (14:09)
[2016-05-29] MEDS: PANTOPRAZOLE 40 MG TABLET PO SCH (14:10)
[2016-05-29] MEDS: amLODIPine 10 MG TABLET PO SCH (14:10)
[2016-05-29] MEDS: SODIUM BICARBONATE 650 MG TABLET PO SCH ×2 (14:11→21:04)
--- NOTE | 2016-05-29 14:33 | Hospitalist Progress Note ---
Assessment and Plan (1) End stage renal disease Status: Acute Assessment and plan: dialysis daily for 3 days Current Visit: Yes (2) Hypertension Status: Acute Assessment and plan: Increase Coreg to 12.5 twice daily Current Visit: Yes (3) Anemia Status: Acute Assessment and plan: 2 unit of PRBC on dialysis today Current Visit: Yes (4) Shortness of breath Status: Acute Assessment and plan: Better today on dialysis Current Visit: Yes (5) Volume overload Status: Acute Assessment and plan: ESRD day #1 today on dialysis continue Lasix Current Visit: Yes (6) Clotted dialysis access Problem details: this AV graft was placed >2 yrs ago per patient and has not been used Status: Acute Assessment and plan: dialysis catheter placed yesterday Current Visit: Yes (7) LEAH (obstructive sleep apnea) Status: Acute Assessment and plan: Dr patton to see Current Visit: Yes Hospitalist: Subjective Interval history: Patient breathing better today she is on her first dialysis session today she will do 2 hours. She received 2 units packed red blood cells with dialysis. Exam - Constitutional Vitals: Period Temp Pulse Resp BP Sys/[place] Pulse Ox Last 24 Hr 97.5 F-99.6 F 73-91 16-20 156-224/68-86 93-100 Exam: Heart Rate-[RRR] Lungs-[clear wheezing has improved] GI-[+bs soft, NT] Ext-[no edema] neuro alert and oriented times 3, motor 4/5 psych normal mood and affect general no acute distress Results - Labs CBC & BMP: 05/28/16 14:52 05/29/16 02:21 Lab Results: I have reviewed the past 24 hour labs Quality Measures - VTE Contraindication to Pharmacological VTE Prophylaxis: Thrombocytopenia
[2016-05-29] MEDS: CARVEDILOL 12.5 MG TABLET PO SCH (16:53)
[2016-05-29] MEDS: LEVOFLOXACIN 250 MG TABLET PO SCH (16:53)
[2016-05-29 20:27] LABS: Hepatitis B Surface Ag Quant < 0.10 Index; Hepatitis B Surface Ag Result Negative (Negative)
[2016-05-30] MEDS: ALBUTEROL/IPRATROPIUM 3 ML NEB RESP TX SCH ×6 (00:27→19:24)
[2016-05-30 05:29] LABS: Basophils % 0.1 % (0.0-0.8); Eosinophils % 0.4 % (0.00-10.9); Hematocrit 26.8 VOL% (35.7-47.0); Hemoglobin 8.6 GM/DL (12.0-16.0); Immature Granulocytes % 0.9 %; Lymphocytes # 1.4 10*3/uL (1.4-4.0); Lymphocytes % 12.5 % (21.3-54.2); Mean Corpuscular HGB Conc 32.1 GM/DL (32-36); Mean Corpuscular Hemoglobin 28 PG (27-34); Mean Corpuscular Volume 87.6 FL (87-102); Mean Platelet Volume 10.2 FL (9.6-12.0); Monocytes # 1.1 10*3/uL (0.11-0.8); Monocytes % 9.8 % (1.7-12.7); Neutrophils # 8.2 10*3/uL (1.4-7.4); Neutrophils % 76.3 % (38.7-73.9); Platelet Count 213 T/CUMM (130-400); Red Blood Count 3.06 MC/CUMM (3.8-5.5); White Blood Count 10.8 T/CUMM (4-12)
[2016-05-30 05:57] LABS: Calcium 9.2 MG/DL (8.5-10.1); Osmolality,Calculated 313.4 MOS/KG (273-304); Potassium 4.3 MMOL/L (3.5-5.1)
[2016-05-30] MEDS: LEVOTHYROXINE 25 MCG TABLET PO SCH (06:05)
--- NOTE | 2016-05-30 08:40 | Nephrology Progress Note ---
Nephrology - PN: Subj Interval history: patient continues to complain of left knee pain, review of systems pulmonary- she denies shortness of breath Physical exam general patient's chronically ill-appearing, she has 1+ pretibial edema on the left leg and trace pretibial edema on the right Assessment/plan 1. End-stage renal disease-we'll continue hemodialysis support 2. Hypertension we'll continue her present antihypertensives 3. Volume overload we'll continue ultrafiltration on hemodialysis 4. Anemia we'll continue EPO on hemodialysis Exam (PN)-Nephrology - Vital Signs Vital signs: Period Temp Pulse Resp BP Sys/[place] Pulse Ox Last 24 Hr 96.6 F-100.1 F 78-97 18-20 142-180/57-78 95-99 - Lab 05/30/16 04:37 05/30/16 04:37 Most recent lab results Calcium 9.2 MG/DL (8.5-10.1) 05/30/16 04:37 Magnesium 2.4 MG/DL (1.8-2.4) 05/25/16 09:51 Phosphorus 7.8 MG/DL (2.5-4.9) H 05/29/16 02:21 Assessment and Plan (1) Chronic renal failure Problem details: CKD stage V progressing to ESRD and HD Status: Acute Assessment and plan: This patient's creatinine is about what it was 6 months ago however she has significant volume overload and her potassiums a little bit worse than it was 6 months ago, she also has metabolic acidosis that is about the same as it was 6 months ago. She seems to be asymptomatic from a uremic standpoint. She states she has had some vomiting but I think she was talking about coughing up cold. We'll see if we can get her better from a shortness of breath standpoint without worsening her renal failure but I have some doubts of whether will be able to pull this off. Current Visit: Yes (2) Shortness of breath Status: Acute Assessment and plan: This patient has marked lower extremity edema and some increased interstitial markings in her lungs. It sounds like she's had some cold symptoms with body aches all over and a persistent cough which confuses the picture whether this is bronchitis versus pulmonary edema related to her volume overload. Her white count is normal although she does have a little bit of a left shift on her differential. I think it's reasonable to try a her on some IV Lasix. Current Visit: Yes (3) Volume overload Status: Acute Current Visit: Yes (4) Hyperkalemia Status: Acute Current Visit: Yes (5) Metabolic acidosis Status: Acute Assessment and plan: I'll start her on some sodium bicarbonate Current Visit: Yes (6) Anemia Status: Acute Assessment and plan: We may want to try and transfuse her later in the hospitalization once we've got her breathing improved Current Visit: Yes
[2016-05-30] MEDS ORDERED: methylPREDNISolone SOD SUC 40 MG/1 ML VIAL IV SCH (09:00)
--- NOTE | 2016-05-30 09:11 | Dialysis Note ---
Dialysis Note - Dialysis Note Patient seen on dialysis she's tolerating procedure blood pressure 180/80.
[2016-05-30] MEDS: OFLOXACIN 0.3% OPH SOLN 10 ML BOTTLE BOTH EYES SCH ×4 (09:46→20:42)
[2016-05-30] MEDS: INSULIN LISPRO 100 UNIT/ML SUBCUT SCH ×4 (09:46→20:42)
[2016-05-30] MEDS: FUROSEMIDE 40 MG/4 ML VIAL IV SCH ×2 (09:46→17:01)
[2016-05-30] MEDS: DORZOLAMIDE/TIMOLOL OPH SOLN 10 ML BOTTLE BOTH EYES SCH ×2 (09:47→20:42)
--- NOTE | 2016-05-30 11:26 | Hospitalist Progress Note ---
Assessment and Plan (1) End stage renal disease Status: Acute Assessment and plan: dialysis daily for 3 days Current Visit: Yes (2) Hypertension Status: Acute Assessment and plan: Increase Coreg to 12.5 twice daily, hydralazine 25 mg po tid Current Visit: Yes (3) Anemia Status: Acute Assessment and plan: hgb better today Current Visit: Yes (4) Shortness of breath Status: Acute Assessment and plan: Better today on dialysis Current Visit: Yes (5) Volume overload Status: Acute Assessment and plan: ESRD day #2 today on dialysis Current Visit: Yes (6) Clotted dialysis access Problem details: this AV graft was placed >2 yrs ago per patient and has not been used Status: Acute Assessment and plan: dialysis catheter placed Current Visit: Yes (7) LEAH (obstructive sleep apnea) Status: Acute Assessment and plan: Dr patton has seen her and will evaluate her records Current Visit: Yes (8) Type 2 diabetes mellitus Status: Acute Assessment and plan: not controlled, hgb a1c, stop steroids, start lantus 10 units Current Visit: Yes Hospitalist: Subjective Interval history: Patient is getting her second dialysis today. She will get her third dialysis tomorrow and then should be stable for discharge Exam - Constitutional Vitals: Period Temp Pulse Resp BP Sys/[place] Pulse Ox Last 24 Hr 96.6 F-100.1 F 78-97 17-20 142-180/57-78 95-99 Exam: Heart Rate-[RRR] Lungs-[clear ] GI-[+bs soft, NT] Ext-[no edema] neuro alert and oriented times 3, motor 5/5 psych normal mood and affect general no acute distress Results - Labs CBC & BMP: 05/30/16 04:37 05/30/16 04:37 Lab Results: I have reviewed the past 24 hour labs Quality Measures - VTE Contraindication to Pharmacological VTE Prophylaxis: Thrombocytopenia
[2016-05-30] MEDS: PANTOPRAZOLE 40 MG TABLET PO SCH (13:21)
[2016-05-30] MEDS: amLODIPine 10 MG TABLET PO SCH (13:21)
[2016-05-30] MEDS: DOXAZOSIN 4 MG TABLET PO SCH (13:21)
[2016-05-30] MEDS: INSULIN GLARGINE 100 UNIT/ML SUBCUT SCH (13:21)
[2016-05-30] MEDS: SODIUM BICARBONATE 650 MG TABLET PO SCH ×2 (13:21→20:43)
[2016-05-30] MEDS: FEXOFENADINE 180 MG TABLET PO SCH (13:22)
[2016-05-30] MEDS: CARVEDILOL 12.5 MG TABLET PO SCH ×2 (13:22→17:01)
[2016-05-30] MEDS: hydrALAZINE 25 MG TABLET PO SCH ×2 (17:00→20:44)
[2016-05-31] MEDS: ALBUTEROL/IPRATROPIUM 3 ML NEB RESP TX SCH ×4 (00:18→11:39)
[2016-05-31 04:08] LABS: Basophils % 0.3 % (0.0-0.8); Eosinophils # 0.2 10*3/uL (0.0-0.87); Eosinophils % 2.2 % (0.00-10.9); Hematocrit 27.8 VOL% (35.7-47.0); Hemoglobin 8.9 GM/DL (12.0-16.0); Immature Granulocytes % 0.9 %; Immature Granulocytes Absolute 0.07 #; Lymphocytes # 1.3 10*3/uL (1.4-4.0); Lymphocytes % 16.1 % (21.3-54.2); Mean Corpuscular Hemoglobin 28 PG (27-34); Mean Corpuscular Volume 88.3 FL (87-102); Mean Platelet Volume 9.3 FL (9.6-12.0); Monocytes % 12.2 % (1.7-12.7); Neutrophils # 5.4 10*3/uL (1.4-7.4); Neutrophils % 68.3 % (38.7-73.9); Platelet Count 199 T/CUMM (130-400); Red Blood Count 3.15 MC/CUMM (3.8-5.5); Red Cell Distribution Width 15.9 % (9.3-17.3); White Blood Count 7.9 T/CUMM (4-12)
[2016-05-31 04:38] LABS: Calcium 9.1 MG/DL (8.5-10.1); Osmolality,Calculated 300.6 MOS/KG (273-304); Potassium 3.8 MMOL/L (3.5-5.1)
[2016-05-31] MEDS: LEVOTHYROXINE 25 MCG TABLET PO SCH (06:16)
[2016-05-31] MEDS: INSULIN LISPRO 100 UNIT/ML SUBCUT SCH ×2 (08:09→11:41)
--- NOTE | 2016-05-31 08:18 | Discharge Summary ---
<Annie Funez - Last Filed: 05/31/16 08:08> Hospital Course - Hospital Course Hospital Course: Ms. Lares was admitted on 05/25 with anemia and chronic renal failure. She presented with shortness of breath and cold symptoms. Admission labs showed anemia at 11/19, hyperkalemia with a potassium of 5.4. Dr. Hunltey with nephrology was consulted for her CKD V. She did appear to be in fluid overload as well as metabolic acidosis. Sodium bicarb was initiated. We increased her lasix to 160 mg IV BID, and her symptoms improved. On 05/28, Ms. Lares underwent an attempted fistulogram and dclot of her nonfunctioning left arm AV graft. Dr. Savana MACKAY discussed a tunneled catheter placement since declot was unsuccessful and she proceeded with this. She was restarted on her Coreg, Norvasc and cardura for HTN. She continued to be in volume overload due to her ESRD and dialysis was initiated. Dr. Liz Ely with Sleep Medicine was consulted given LEAH. [place] it. She will need re-evaluation of her LEAH. Dialysis was started on . Her breathing improved after her first dialysis session and she received 2 units of packed cells while on dialysis. On 05/30, her coreg was increased to 12.5 po BID and hydralazine 25 mg po TID. Her anemia improved after transfusion. Her volume overload has greatly improved after 2 dialysis treatments. She has improved markedly since admission, and is ready for discharge home today on appropriate medications and follow up. - Time spent with patient Time with patient DS: Greater than 30 minutes (due to plan, doc and med rec.) Diagnosis - Discharge Diagnosis (1) Anemia Status: Acute (2) Clotted dialysis access Status: Acute (3) End stage renal disease Status: Acute (4) Hyperkalemia Status: Acute (5) Hypertension Status: Acute (6) Metabolic acidosis Status: Acute (7) LEAH (obstructive sleep apnea) Status: Acute (8) Type 2 diabetes mellitus Status: Acute (9) Volume overload Status: Acute Discharge Plan - Discharge Data Disposition: Disch To Home/Self Care - Discharge Medications New Insulin Glargine [Lantus] 10 unit SUBCUT DAILY #100 vial hydrALAZINE TAB [Apresoline Tab] 25 mg PO TID #90 tablet Heparin Inj 2,000 unit IV .EA DIALYSIS PORT PRN #0 vial PRN Reason: DIALYSIS Pantoprazole Tab [Protonix Tab] 40 mg PO DAILY #30 tablet Continue Dorzolamide/Timolol Oph Soln [Cosopt] 1 drop BOTH EYES BID Calcium Carbonate [Tums Chew Tab] 750 mg PO Q2H PRN PRN Reason: Indigestion amLODIPine [Norvasc] 10 mg PO DAILY Fexofenadine [Mellissa] 180 mg PO DAILY Doxazosin [Cardura] 4 mg PO DAILY Ofloxacin [Ofloxacin 0.3% Oph Soln] 1 drop BOTH EYES QID Sodium Bicarb Tab 1,300 mg PO BID Levothyroxine Tab [Synthroid Tab] 25 mcg PO DAILY Changed Carvedilol 12.5 mg PO BID #120 tablet Discontinued Furosemide Tab [Lasix Tab] 40 mg PO DAILY Lisinopril/Hydrochlorothiazide [Zestoretic 20-12.5 mg Tablet] 1 each PO DAILY - Follow Up or Referral Follow Up: dr radha [Other] - 2 Weeks Liz Ely MD [Physician] - 1 Week - Forms/Instructions Exam - Constitutional Vitals: Period Temp Pulse Resp BP Sys/[place] Pulse Ox Last 24 Hr 96.2 F-99.7 F 77-100 16-20 121-157/43-83 93-100 Discharge Results Procedures and tests throughout hospitalization: Pending Orders 05/29/16 10:00 Occult Blood, Stool Routine 06/01/16 04:00 Comp Blood Count Auto Diff IN AM Labs on day of discharge: Labs from last 24 hours 05/31/16 05/31/16 05/31/16 07:56 03:47 03:47 WBC 7.9 RBC 3.15 L Hgb 8.9 L Hct 27.8 L MCV 88.3 MCH 28 MCHC 32.0 RDW 15.9 Plt Count 199 MPV 9.3 L Neut % (Auto) 68.3 Lymph % (Auto) 16.1 L [place] % (Auto) 12.2 Eos % (Auto) 2.2 Baso % (Auto) 0.3 Neut # (Auto) 5.4 Lymph # (Auto) 1.3 L [place] # (Auto) 1.0 H Eos # (Auto) 0.2 Baso # (Auto) 0.0 Immature Gran % 0.9 Nucleated RBC % 0.0 Immature Gran # 0.07 Nucleated RBCs # 0.00 Sodium 146 H Potassium 3.8 Chloride 107 Carbon Dioxide 27 Anion Gap 15.8 H BUN 35 H D Creatinine 3.90 H GFR Calculation 16 BUN/Creatinine Ratio 8.00 Glucose 144 H POC Glucose 137 H Hemoglobin A1c Calculated Osmolality 300.6 Calcium 9.1 05/30/16 05/30/16 05/30/16 18:55 16:02 12:00 WBC RBC Hgb Hct MCV MCH MCHC RDW Plt Count MPV Neut % (Auto) Lymph % (Auto) [place] % (Auto) Eos % (Auto) Baso % (Auto) Neut # (Auto) Lymph # (Auto) [place] # (Auto) Eos # (Auto) Baso # (Auto) Immature Gran % Nucleated RBC % Immature Gran # Nucleated RBCs # Sodium Potassium Chloride Carbon Dioxide Anion Gap BUN Creatinine GFR Calculation BUN/Creatinine Ratio Glucose POC Glucose 180 H 189 H 141 H Hemoglobin A1c Calculated Osmolality Calcium 05/30/16 05/30/16 11:43 11:21 WBC RBC Hgb Hct MCV MCH MCHC RDW Plt Count MPV Neut % (Auto) Lymph % (Auto) [place] % (Auto) Eos % (Auto) Baso % (Auto) Neut # (Auto) Lymph # (Auto) [place] # (Auto) Eos # (Auto) Baso # (Auto) Immature Gran % Nucleated RBC % Immature Gran # Nucleated RBCs # Sodium Potassium Chloride Carbon Dioxide Anion Gap BUN Creatinine GFR Calculation BUN/Creatinine Ratio Glucose POC Glucose 170 H Hemoglobin A1c 6.0 Calculated Osmolality Calcium DS: Provider Date of admission: 05/25/16 11:41 Primary care physician: Lina Martinez Attending physician on admission: Estelle Devine MD Consults: 05/25/16 11:57 Consult to Pharmacy [CONS] Routine Reason for Pharmacy Consult: Adjust Meds Renal Funct 05/27/16 08:18 Consult to Physician [CONS] Routine Comment: dialysis catheter Consulting Provider: Armani Sawant III. Consult to Specialist Group: Surgery Person Notified: VALERIE Date Notified: 05/28/16 Time Notified: 10:10 05/28/16 14:49 Consult to Sleep Center [CONS] Routine Reason for Sleep Center: Sleep Center Physician Consult Comment: leah 05/29/16 14:25 Consult to Physical Therapy [CONS] Routine Reason for Physical Therapy: Weakness 05/30/16 11:22 Consult to Physical Therapy [CONS] Routine Reason for Physical Therapy: Evaluate and Treat Discharging clinician: Annie Funez NP Expected date of discharge: 05/31/16 <Susie Perry - Last Filed: 05/31/16 11:55> Hospital Course - Hospital Course Hospital Course: Patient seen and examined. Hospital course reviewed and edited. Patient will be Triny dialyzed on Saturday. Patient does have obstructive sleep apnea and will follow up with Dr. Liz Ely she is not using a sleep machine at this time. Her blood pressure is better controlled on current medication regimen. Diagnosis - Discharge Diagnosis (1) End stage renal disease Status: Acute (2) Hypertension Status: Acute (3) Anemia Status: Acute (4) Shortness of breath Status: Acute (5) Volume overload Status: Acute (6) Clotted dialysis access Status: Acute (7) LEAH (obstructive sleep apnea) Status: Acute (8) Type 2 diabetes mellitus Status: Acute Discharge Plan - Discharge Data Condition at Discharge: Stable Discharge Diet: diabetic diet Activity: resume usual activities as tolerated Hygiene: no restrictions Weight Bearing at Discharge: full weight bearing - Forms/Instructions Additional Discharge Instructions: Dialysis every Saturday, Saturday and Saturday Exam - Constitutional General appearance: no acute distress, morbidly obese - Respiratory Respiratory exam: Present: clear to auscultation bilaterally. Absent: rhonchi, wheezes - Cardiovascular Cardiovascular exam: Present: regular rate and rhythm. Absent: systolic murmur - GI/Abdominal GI/Abdominal exam: Present: normal bowel sounds, soft. Absent: tenderness - Neurological Exam Neurological exam: Present: alert, oriented X3 - Psychiatric Psychiatric exam: Present: normal affect, normal mood
[2016-05-31] MEDS: DORZOLAMIDE/TIMOLOL OPH SOLN 10 ML BOTTLE BOTH EYES SCH (08:23)
[2016-05-31] MEDS: OFLOXACIN 0.3% OPH SOLN 10 ML BOTTLE BOTH EYES SCH ×2 (08:23→13:39)
[2016-05-31] MEDS: FEXOFENADINE 180 MG TABLET PO SCH (08:24)
[2016-05-31] MEDS: INSULIN GLARGINE 100 UNIT/ML SUBCUT SCH (08:24)
[2016-05-31] MEDS: SODIUM BICARBONATE 650 MG TABLET PO SCH (08:24)
[2016-05-31] MEDS: PANTOPRAZOLE 40 MG TABLET PO SCH (08:24)
[2016-05-31] MEDS: FUROSEMIDE 40 MG/4 ML VIAL IV SCH (08:31)
[2016-05-31] MEDS: CARVEDILOL 12.5 MG TABLET PO SCH (08:31)
[2016-05-31] MEDS: hydrALAZINE 25 MG TABLET PO SCH (08:31)
--- NOTE | 2016-05-31 08:54 | Dialysis Note ---
Dialysis Note - Dialysis Note Ms. Lares is seen during her hemodialysis. She is tolerating dialysis well and is eating breakfast while she dialyzes. No problems are noted with the dialysis.
--- NOTE | 2016-05-31 09:10 | Nephrology Progress Note ---
Nephrology - PN: Subj Interval history: Patient feels better today. She denies shortness of breath. Review of systems GI she denies nausea or vomiting Physical exam general the patient's chronically ill-appearing, extremities reveal no pitting edema this morning Assessment/plan 1. End-stage renal disease-patient is to dialyze today. Arrangements are being worked on for outpatient dialysis. 2. Hypertension continue present medications 3. Volume overload-this patient had some nausea post dialysis and feel poorly, this may be related to over ultrafiltration. We'll continue to probe for her dry weight gently today. From my standpoint the patient can be discharged home, ideally she would have her dialysis placement prior to her discharge. Exam (PN)-Nephrology - Vital Signs Vital signs: Period Temp Pulse Resp BP Sys/[place] Pulse Ox Last 24 Hr 96.2 F-99.7 F 77-97 16-20 121-157/43-83 93-100 - Lab 05/31/16 03:47 05/31/16 03:47 Most recent lab results Calcium 9.1 MG/DL (8.5-10.1) 05/31/16 03:47 Magnesium 2.4 MG/DL (1.8-2.4) 05/25/16 09:51 Phosphorus 7.8 MG/DL (2.5-4.9) H 05/29/16 02:21 Assessment and Plan (1) Chronic renal failure Problem details: CKD stage V progressing to ESRD and HD Status: Acute Assessment and plan: This patient's creatinine is about what it was 6 months ago however she has significant volume overload and her potassiums a little bit worse than it was 6 months ago, she also has metabolic acidosis that is about the same as it was 6 months ago. She seems to be asymptomatic from a uremic standpoint. She states she has had some vomiting but I think she was talking about coughing up cold. We'll see if we can get her better from a shortness of breath standpoint without worsening her renal failure but I have some doubts of whether will be able to pull this off. Current Visit: Yes (2) Shortness of breath Status: Acute Assessment and plan: This patient has marked lower extremity edema and some increased interstitial markings in her lungs. It sounds like she's had some cold symptoms with body aches all over and a persistent cough which confuses the picture whether this is bronchitis versus pulmonary edema related to her volume overload. Her white count is normal although she does have a little bit of a left shift on her differential. I think it's reasonable to try a her on some IV Lasix. Current Visit: Yes (3) Volume overload Status: Acute Current Visit: Yes (4) Hyperkalemia Status: Acute Current Visit: Yes (5) Metabolic acidosis Status: Acute Assessment and plan: I'll start her on some sodium bicarbonate Current Visit: Yes (6) Anemia Status: Acute Assessment and plan: We may want to try and transfuse her later in the hospitalization once we've got her breathing improved Current Visit: Yes
--- NOTE | 2016-05-31 09:44 | Physician Query Form ---
CLICK EDIT DOCUMENT TO SELECT QUERY ANSWER --> OK --> SIGN Linda Hinojosa RN, CCDS Certified Clinical Welfare Project Manager W) [phone] (f) [phone] [email or web address] PROVIDERS: Make your selection(s) from the choices in EACH section by typing an "x" and enter comments in the comment section. Please use your independent medical judgment in providing your response. This request does not imply that any particular answer is desired or expected. CLINICAL INDICATORS: (Providers should not edit this section) The medical record indicates that the patient was admitted with volume overload , and on the : "Congestive heart failure-we will pull 2 L fluid off today as tolerated on hemodialysis". Please provide further specificity regarding CHF. ACUITY: ( ) Acute ( ) Chronic (x ) Acute on Chronic ( ) Clinically unable to determine TYPE: ( ) Systolic ( x) Diastolic ( ) Combined Systolic/Diastolic ( ) Other, please specify: ( ) Clinically unable to determine ( x) The patient does NOT have CHF--- fluid overload. COMMENTS: Use of terms such as suspected, likely, or probable (associated with a specific diagnosis that is being evaluated, monitored, or treated as if it exists) are acceptable and can be restated in the discharge summary if not ruled out. MTDD
--- NOTE | 2016-05-31 09:45 | Physician Query Form ---
CLICK EDIT DOCUMENT TO SELECT QUERY ANSWER --> OK --> SIGN Linda Hinojosa RN, CCDS Certified Clinical Candy Decorator W) [phone] (f) [phone] [email or web address] PROVIDERS: Make your selection(s) from the choices in EACH section by typing an "x" and enter comments in the comment section. Please use your independent medical judgment in providing your response. This request does not imply that any particular answer is desired or expected. CLINICAL INDICATORS: (Providers should not edit this section) The medical record indicates that the patient was admitted with volume overload , anemia, HH of 7.7/ 25.3 and the patient was given 2 units of blood. Based on the above, could you clarify which of the following conditions you are evaluating, treating, and/or monitoring? ( x) Blood loss anemia ( x) acute ( ) chronic ( ) acute on chronic ( ) Acute blood loss anemia on baseline chronic anemia ( ) Acute blood loss anemia as a complication of a procedure ( ) Iron deficiency anemia not associated with blood loss ( ) Dilutional anemia due to IV fluids ( ) Anemia due to chemotherapy ( ) Anemia due to neoplastic disease ( ) Anemia due to chronic kidney disease ( ) Pernicious anemia ( ) Aplastic anemia ( ) Hemolytic anemia ( ) immune ( ) non-immune - please specify cause: ( ) Anemia due to other condition, please specify: ( ) Clinically unable to determine COMMENTS: Use of terms such as suspected, likely, or probable (associated with a specific diagnosis that is being evaluated, monitored, or treated as if it exists) are acceptable and can be restated in the discharge summary if not ruled out. MTDD
[2016-05-31] MEDS ORDERED: HEPARIN 10,000 UNIT/10 ML VIAL IV PRN (11:18)
[2016-05-31] MEDS: DOXAZOSIN 4 MG TABLET PO SCH (13:39)
[2016-05-31] MEDS: amLODIPine 10 MG TABLET PO SCH (13:40)
[2016-05-31 13:41] VITALS: BP 142/67
== END 2016-05-31 14:25 | disposition home or self-care (01) | DRG 682 ==
LOC: N.ED 08:30 → SUATTDRO 11:41 → N.EDINP 11:41 → N.TELES 12:39
PROVIDERS: ADMIT Internal Medicine; ATTEND Internal Medicine Geriatric Medicine

== ENCOUNTER 2017-11-06 05:46 | Inpatient (IN) ==
[2017-11-11 20:22] VITALS: BP 118/52
== END 2017-11-11 15:20 | disposition home or self-care (01) | DRG 674 ==
LOC: N.OR 05:46 → N.SDSINP 05:49 → N.3E 10:47
PROVIDERS: ADMIT Surgery; ATTEND Surgery

== ENCOUNTER 2020-04-28 10:14 | Inpatient (IN) ==
[2020-04-28 12:13] LABS: Basophils % 0.2 % (0.0-0.8); Eosinophils % 0.2 % (0.00-10.9); Hematocrit 35.2 VOL% (35.7-47.0); Hemoglobin 11.8 GM/DL (12.0-16.0); Immature Granulocytes % 0.2 %; Immature Granulocytes Absolute 0.01 #; Lymphocytes # 0.7 10*3/uL (1.4-4.0); Lymphocytes % 18.3 % (21.3-54.2); Mean Corpuscular HGB Conc 33.5 GM/DL (32-36); Mean Corpuscular Volume 96.2 FL (87-102); Mean Platelet Volume 9.5 FL (9.6-12.0); Monocytes # 0.3 10*3/uL (0.11-0.8); Monocytes % 7.7 % (1.7-12.7); Neutrophils % 73.4 % (38.7-73.9); Platelet Count 158 T/CUMM (130-400); Red Blood Count 3.66 MC/CUMM (3.8-5.5); Red Cell Distribution Width 13.1 % (9.3-17.3)
[2020-04-28] MEDS ORDERED: ONDANSETRON 4 MG/2 ML VIAL IV STA (12:42)
[2020-04-28] MEDS ORDERED: ONDANSETRON 4 MG/2 ML VIAL ONE (12:45)
[2020-04-28] MEDS ORDERED: cefTRIAXone 1,000 MG in SODIUM CHLORIDE 0.9% 100 ML IV STA (13:09)
[2020-04-28] MEDS ORDERED: AZITHROMYCIN 250 MG TABLET PO STA (13:09)
[2020-04-28 13:10] LABS: Albumin 2.8 G/DL (3.4-5.0); Bilirubin,Total 0.5 MG/DL (0.2-1.0); Calcium 9.3 MG/DL (8.5-10.1); Osmolality,Calculated 275.8 MOS/KG (273-304); Potassium 3.2 MMOL/L (3.5-5.1); Total Protein 7.6 G/DL (6.4-8.3)
[2020-04-28] MEDS ORDERED: GLUCAGON 1 MG VIAL IM PRN (14:49)
[2020-04-28] MEDS ORDERED: ACETAMINOPHEN 325 MG TABLET PO PRN (14:49)
[2020-04-28] MEDS ORDERED: hydrALAZINE 20 MG/1 ML VIAL IV PRN (14:49)
[2020-04-28] MEDS ORDERED: DEXTROSE 50% 25 GM/50 ML VIAL IV PRN (14:49)
[2020-04-28 15:13] LABS: INR 1.1; PT Patient Result 11.9 SECS (9.8-11.9)
[2020-04-28] MEDS: INSULIN REGULAR 100 UNIT/ML SUBCUT SCH ×2 (15:55→21:12)
[2020-04-28] MEDS: AZITHROMYCIN INJ 500 MG in SODIUM CHLORIDE 0.9% 250 ML IV SCH (16:54)
[2020-04-28] MEDS: cefTRIAXone 1,000 MG in SYRINGE 1 EACH IV SCH (16:54)
[2020-04-28] MEDS: ALBUTEROL INHALER 18 GM INH SCH (18:01)
[2020-04-28] MEDS: guaiFENesin/DM ER 600-30 MG TABLET PO SCH (21:04)
[2020-04-29] MEDS: ALBUTEROL INHALER 18 GM INH SCH ×4 (01:13→18:29)
[2020-04-29 05:53] LABS: Basophils % 0.2 % (0.0-0.8); Eosinophils % 0.2 % (0.00-10.9); Hematocrit 32.2 VOL% (35.7-47.0); Hemoglobin 10.7 GM/DL (12.0-16.0); Immature Granulocytes % 0.5 %; Immature Granulocytes Absolute 0.02 #; Lymphocytes # 0.9 10*3/uL (1.4-4.0); Lymphocytes % 20.4 % (21.3-54.2); Mean Corpuscular HGB Conc 33.2 GM/DL (32-36); Mean Corpuscular Volume 97.9 FL (87-102); Mean Platelet Volume 9.7 FL (9.6-12.0); Monocytes # 0.3 10*3/uL (0.11-0.8); Monocytes % 7.9 % (1.7-12.7); Neutrophils % 70.8 % (38.7-73.9); Platelet Count 157 T/CUMM (130-400); Red Blood Count 3.29 MC/CUMM (3.8-5.5); Red Cell Distribution Width 13.2 % (9.3-17.3); White Blood Count 4.2 T/CUMM (4-12)
[2020-04-29] MEDS ORDERED: guaiFENesin 200 MG/10 ML UDCUP PO PRN (06:12)
[2020-04-29] MEDS ORDERED: CALCIUM CARBONATE CHEW 500 MG TABLET PO PRN (06:21)
[2020-04-29 06:28] LABS: Calcium 8.8 MG/DL (8.5-10.1); Osmolality,Calculated 280.7 MOS/KG (273-304); Potassium 3.1 MMOL/L (3.5-5.1); Risk Ratio 4.59; Thyroid Stimulating Hormone 0.97 uIU/ml (0.358-3.74)
[2020-04-29] MEDS ORDERED: CALCIUM CARBONATE CHEW 500 MG TABLET PO SCH (09:00)
[2020-04-29] MEDS ORDERED: DORZOLAMIDE/TIMOLOL OPH SOLN 10 ML BOTTLE BOTH EYES SCH (09:00)
[2020-04-29] MEDS ORDERED: INSULIN GLARGINE 100 UNIT/ML SUBCUT SCH (09:00)
[2020-04-29] MEDS: carvediloL 6.25 MG TABLET PO SCH ×2 (09:25→20:31)
[2020-04-29] MEDS: guaiFENesin/DM ER 600-30 MG TABLET PO SCH ×2 (09:25→20:31)
[2020-04-29] MEDS: INSULIN REGULAR 100 UNIT/ML SUBCUT SCH ×4 (09:25→20:30)
[2020-04-29] MEDS: PANTOPRAZOLE 40 MG TABLET PO SCH (09:25)
[2020-04-29] MEDS: DORZOLAMIDE/TIMOLOL OPH SOLN 10 ML BOTTLE BOTH EYES SCH ×2 (10:31→20:31)
[2020-04-29] MEDS: cefTRIAXone 1,000 MG in SYRINGE 1 EACH IV SCH (16:18)
[2020-04-29] MEDS: AZITHROMYCIN INJ 500 MG in SODIUM CHLORIDE 0.9% 250 ML IV SCH (16:18)
[2020-04-29] MEDS: INSULIN GLARGINE 100 UNIT/ML SUBCUT SCH (20:30)
[2020-04-30] MEDS: ALBUTEROL INHALER 18 GM INH SCH ×4 (01:09→18:59)
[2020-04-30 06:05] LABS: Calcium 8.5 MG/DL (8.5-10.1); Osmolality,Calculated 280.8 MOS/KG (273-304); Potassium 3.2 MMOL/L (3.5-5.1)
[2020-04-30 06:10] LABS: Basophils % 0.2 % (0.0-0.8); Eosinophils % 0.2 % (0.00-10.9); Hematocrit 31.9 VOL% (35.7-47.0); Hemoglobin 10.4 GM/DL (12.0-16.0); Immature Granulocytes % 0.5 %; Immature Granulocytes Absolute 0.02 #; Lymphocytes # 1.1 10*3/uL (1.4-4.0); Lymphocytes % 26.4 % (21.3-54.2); Mean Corpuscular HGB Conc 32.6 GM/DL (32-36); Mean Corpuscular Volume 99.7 FL (87-102); Monocytes # 0.3 10*3/uL (0.11-0.8); Monocytes % 8.1 % (1.7-12.7); Neutrophils % 64.6 % (38.7-73.9); Platelet Count 179 T/CUMM (130-400); Red Cell Distribution Width 13.2 % (9.3-17.3); White Blood Count 4.1 T/CUMM (4-12)
[2020-04-30] MEDS: LEVOTHYROXINE 75 MCG TABLET PO SCH (06:10)
[2020-04-30 07:09] LABS: Platelet Estimate Adequate
[2020-04-30] MEDS: INSULIN REGULAR 100 UNIT/ML SUBCUT SCH ×4 (07:49→20:37)
[2020-04-30] MEDS: DORZOLAMIDE/TIMOLOL OPH SOLN 10 ML BOTTLE BOTH EYES SCH ×2 (08:47→20:38)
[2020-04-30 10:33] LABS: Hepatitis B Core IgM Quant 0.07 Index; Hepatitis B Surface Ag Quant < 0.10 Index; Hepatitis B Surface Ag Result Negative (Negative); Hepatitis C Virus Ab Quant 0.02 Index; Hepatitis C Virus Ab Result Negative (Negative)
[2020-04-30] MEDS ORDERED: HEPARIN 10,000 UNIT/10 ML VIAL IV SCH (10:45)
[2020-04-30] MEDS ORDERED: VANCOMYCIN INJ 2,500 MG in SODIUM CHLORIDE 0.9% 500 ML IV ONE ×2 (11:00→17:00)
[2020-04-30] MEDS: PANTOPRAZOLE 40 MG TABLET PO SCH (11:38)
[2020-04-30] MEDS: AZITHROMYCIN 250 MG TABLET PO SCH (11:38)
[2020-04-30] MEDS: guaiFENesin/DM ER 600-30 MG TABLET PO SCH ×2 (11:38→20:37)
[2020-04-30] MEDS: carvediloL 6.25 MG TABLET PO SCH ×2 (11:38→20:37)
[2020-04-30] MEDS: PIPERACILLIN/TAZOBACTAM 3,375 MG in SODIUM CHLORIDE 0.9% 100 ML IV SCH ×2 (11:39→22:07)
[2020-04-30] MEDS: INSULIN GLARGINE 100 UNIT/ML SUBCUT SCH (20:38)
[2020-05-01] MEDS: ALBUTEROL INHALER 18 GM INH SCH ×4 (01:25→18:11)
[2020-05-01] MEDS: LEVOTHYROXINE 75 MCG TABLET PO SCH (06:07)
[2020-05-01 06:28] LABS: Basophils % 0.2 % (0.0-0.8); Eosinophils % 0.4 % (0.00-10.9); Hematocrit 31.6 VOL% (35.7-47.0); Hemoglobin 10.5 GM/DL (12.0-16.0); Immature Granulocytes % 0.6 %; Immature Granulocytes Absolute 0.03 #; Lymphocytes # 0.9 10*3/uL (1.4-4.0); Lymphocytes % 17.3 % (21.3-54.2); Mean Corpuscular HGB Conc 33.2 GM/DL (32-36); Mean Corpuscular Volume 97.2 FL (87-102); Mean Platelet Volume 9.6 FL (9.6-12.0); Monocytes # 0.4 10*3/uL (0.11-0.8); Monocytes % 7.3 % (1.7-12.7); Neutrophils % 74.2 % (38.7-73.9); Platelet Count 201 T/CUMM (130-400); Red Blood Count 3.25 MC/CUMM (3.8-5.5); Red Cell Distribution Width 12.9 % (9.3-17.3)
[2020-05-01 07:01] LABS: Calcium 8.7 MG/DL (8.5-10.1); Potassium 3.3 MMOL/L (3.5-5.1)
[2020-05-01] MEDS: INSULIN REGULAR 100 UNIT/ML SUBCUT SCH ×4 (07:16→21:15)
[2020-05-01] MEDS: guaiFENesin/DM ER 600-30 MG TABLET PO SCH ×2 (09:00→21:15)
[2020-05-01] MEDS: DORZOLAMIDE/TIMOLOL OPH SOLN 10 ML BOTTLE BOTH EYES SCH ×2 (09:00→21:14)
[2020-05-01] MEDS: PANTOPRAZOLE 40 MG TABLET PO SCH (09:00)
[2020-05-01] MEDS: AZITHROMYCIN 250 MG TABLET PO SCH (09:00)
[2020-05-01] MEDS: carvediloL 6.25 MG TABLET PO SCH ×2 (09:00→21:15)
[2020-05-01 09:03] LABS: Lymphocytes 15 % (20-55); Platelet Estimate Normal; Total Cells Counted 100
[2020-05-01 09:04] LABS: Anisocytosis Slight; Hypochromia Slight; Microcytosis Slight; Polychromasia Few
[2020-05-01] MEDS: PIPERACILLIN/TAZOBACTAM 3,375 MG in SODIUM CHLORIDE 0.9% 100 ML IV SCH ×2 (12:01→23:31)
[2020-05-01] MEDS: INSULIN GLARGINE 100 UNIT/ML SUBCUT SCH (21:16)
[2020-05-02] MEDS: ALBUTEROL INHALER 18 GM INH SCH ×2 (01:30→06:32)
[2020-05-02 05:31] LABS: Basophils % 0.3 % (0.0-0.8); Eosinophils # 0.1 10*3/uL (0.0-0.87); Eosinophils % 1.8 % (0.00-10.9); Hematocrit 30.2 VOL% (35.7-47.0); Immature Granulocytes % 0.5 %; Immature Granulocytes Absolute 0.02 #; Lymphocytes # 0.9 10*3/uL (1.4-4.0); Lymphocytes % 21.5 % (21.3-54.2); Mean Corpuscular HGB Conc 33.1 GM/DL (32-36); Mean Corpuscular Volume 96.5 FL (87-102); Mean Platelet Volume 9.8 FL (9.6-12.0); Monocytes # 0.4 10*3/uL (0.11-0.8); Monocytes % 9.4 % (1.7-12.7); Neutrophils % 66.5 % (38.7-73.9); Platelet Count 188 T/CUMM (130-400); Red Blood Count 3.13 MC/CUMM (3.8-5.5); Red Cell Distribution Width 12.9 % (9.3-17.3)
[2020-05-02 05:44] LABS: Calcium 8.5 MG/DL (8.5-10.1); Osmolality,Calculated 284.7 MOS/KG (273-304); Potassium 3.3 MMOL/L (3.5-5.1)
[2020-05-02 05:49] LABS: Calcium 8.4 MG/DL (8.5-10.1); Osmolality,Calculated 283.7 MOS/KG (273-304); Potassium 3.3 MMOL/L (3.5-5.1)
[2020-05-02 06:10] LABS: Eosinophils 3 % (0-10); Lymphocytes 22 % (20-55); Total Cells Counted 100
[2020-05-02 06:11] LABS: Hypochromia 1+; Microcytosis Slight
[2020-05-02 06:12] LABS: Platelet Estimate Adequate
[2020-05-02] MEDS: LEVOTHYROXINE 75 MCG TABLET PO SCH (06:32)
[2020-05-02] MEDS: INSULIN REGULAR 100 UNIT/ML SUBCUT SCH ×2 (08:02→15:42)
[2020-05-02 08:03] VITALS: BP 129/56
[2020-05-02] MEDS: carvediloL 6.25 MG TABLET PO SCH (09:14)
[2020-05-02] MEDS: DORZOLAMIDE/TIMOLOL OPH SOLN 10 ML BOTTLE BOTH EYES SCH (09:14)
[2020-05-02] MEDS: guaiFENesin/DM ER 600-30 MG TABLET PO SCH (09:14)
[2020-05-02] MEDS: PANTOPRAZOLE 40 MG TABLET PO SCH (09:14)
[2020-05-02] MEDS: AZITHROMYCIN 250 MG TABLET PO SCH (09:16)
[2020-05-02] MEDS ORDERED: VANCOMYCIN INJ 750 MG in SODIUM CHLORIDE 0.9% 250 ML IV ONE (10:30)
[2020-05-02] MEDS ORDERED: ALBUTEROL 2.5 MG/3 ML NEB RESP TX SCH (13:00)
[2020-05-02] MEDS: PIPERACILLIN/TAZOBACTAM 3,375 MG in SODIUM CHLORIDE 0.9% 100 ML IV SCH (15:21)
[2020-05-02] MEDS ORDERED: VANCOMYCIN INJ 750 MG in SODIUM CHLORIDE 0.9% 250 ML IV PRN (17:00)
[2020-05-02] MEDS ORDERED: CEFUROXIME 250 MG TABLET PO SCH (21:00)
== END 2020-05-02 15:17 | disposition home or self-care (01) ==
LOC: N.ED 10:14 → N.EDINP 14:02 → SUATTDRO 14:02 → N.5E 15:07
PROVIDERS: ADMIT Internal Medicine; ATTEND Internal Medicine Geriatric Medicine

== ENCOUNTER 2021-01-23 11:38 | Inpatient (IN) ==
[2021-01-23 12:54] LABS: Basophils % 0.3 % (0.0-0.8); Eosinophils # 0.2 10*3/uL (0.0-0.87); Eosinophils % 2.5 % (0.00-10.9); Hematocrit 34.2 VOL% (35.7-47.0); Hemoglobin 11.1 GM/DL (12.0-16.0); Immature Granulocytes % 0.3 %; Immature Granulocytes Absolute 0.03 #; Lymphocytes # 1.5 10*3/uL (1.4-4.0); Lymphocytes % 16.9 % (21.3-54.2); Mean Corpuscular HGB Conc 32.5 GM/DL (32-36); Mean Corpuscular Volume 101.5 FL (87-102); Mean Platelet Volume 9.2 FL (9.6-12.0); Monocytes % 9.9 % (1.7-12.7); Neutrophils % 70.1 % (38.7-73.9); Platelet Count 187 T/CUMM (130-400); Red Blood Count 3.37 MC/CUMM (3.8-5.5); Red Cell Distribution Width 13.8 % (9.3-17.3); White Blood Count 8.8 T/CUMM (4-12)
[2021-01-23 13:23] LABS: Albumin 2.6 G/DL (3.4-5.0); Bilirubin,Total 0.6 MG/DL (0.20-1.00); Calcium 9.6 MG/DL (8.5-10.1); Osmolality,Calculated 268.4 MOS/KG (273-304); Potassium 3.3 MMOL/L (3.5-5.1); Total Protein 7.6 G/DL (6.4-8.2)
[2021-01-23] MEDS ORDERED: GLUCAGON 1 MG VIAL IM PRN (14:13)
[2021-01-23] MEDS ORDERED: ONDANSETRON 4 MG/2 ML VIAL IV PRN (14:13)
[2021-01-23] MEDS ORDERED: DEXTROSE 50% 25 GM/50 ML VIAL IV PRN (14:13)
[2021-01-23] MEDS ORDERED: hydrALAZINE 20 MG/1 ML VIAL IV PRN (14:13)
[2021-01-23] MEDS: INSULIN LISPRO 100 UNIT/ML SUBCUT SCH ×2 (18:48→20:47)
[2021-01-23] MEDS: ENOXAPARIN 30 MG/0.3 ML SYRINGE SUBCUT SCH (18:50)
[2021-01-23] MEDS: SEVELAMER CARBONATE 800 MG TABLET PO SCH (18:50)
[2021-01-23] MEDS: ALBUTEROL 2.5 MG/3 ML NEB RESP TX SCH (19:45)
[2021-01-23] MEDS: DORZOLAMIDE/TIMOLOL OPH SOLN 10 ML BOTTLE BOTH EYES SCH (20:51)
[2021-01-24] MEDS: LEVOTHYROXINE 75 MCG TABLET PO SCH (06:22)
[2021-01-24 06:35] LABS: Basophils % 0.4 % (0.0-0.8); Eosinophils # 0.2 10*3/uL (0.0-0.87); Hematocrit 34.5 VOL% (35.7-47.0); Hemoglobin 11.2 GM/DL (12.0-16.0); Immature Granulocytes % 0.4 %; Immature Granulocytes Absolute 0.03 #; Lymphocytes # 1.5 10*3/uL (1.4-4.0); Lymphocytes % 18.9 % (21.3-54.2); Mean Corpuscular HGB Conc 32.5 GM/DL (32-36); Mean Corpuscular Volume 101.8 FL (87-102); Mean Platelet Volume 9.7 FL (9.6-12.0); Monocytes % 10.4 % (1.7-12.7); Neutrophils % 66.9 % (38.7-73.9); Platelet Count 197 T/CUMM (130-400); Red Blood Count 3.39 MC/CUMM (3.8-5.5); Red Cell Distribution Width 13.6 % (9.3-17.3); White Blood Count 7.7 T/CUMM (4-12)
[2021-01-24 07:14] LABS: Calcium 9.9 MG/DL (8.5-10.1); Osmolality,Calculated 266.8 MOS/KG (273-304); Risk Ratio 4.91
[2021-01-24] MEDS: ALBUTEROL 2.5 MG/3 ML NEB RESP TX SCH ×2 (07:15→19:40)
[2021-01-24] MEDS ORDERED: ceFAZolin 1,000 MG VIAL IRRIG ONE (07:39)
[2021-01-24] MEDS ORDERED: DIAZEPAM 5 MG TABLET PO ONE ×2 (07:39→07:49)
[2021-01-24] MEDS ORDERED: diphenhydrAMINE CAP 25 MG CAPSULE PO ONE (07:39)
[2021-01-24] MEDS ORDERED: diphenhydrAMINE CAP 50 MG CAPSULE PO ONE (07:49)
[2021-01-24] MEDS ORDERED: LIDOCAINE 1% 20 ML VIAL ONE (07:51)
[2021-01-24] MEDS ORDERED: ceFAZolin 1,000 MG VIAL ONE (07:51)
[2021-01-24] MEDS ORDERED: TISSUE ADHESIVE 1 EACH APPLICATOR TOP ONE (07:51)
[2021-01-24] MEDS: INSULIN GLARGINE 100 UNIT/ML SUBCUT SCH (08:31)
[2021-01-24] MEDS: INSULIN LISPRO 100 UNIT/ML SUBCUT SCH ×4 (09:20→20:54)
[2021-01-24] MEDS ORDERED: MIDAZOLAM 2 MG/2 ML VIAL ONE ×2 (09:54→10:54)
[2021-01-24] MEDS ORDERED: fentaNYL 100 MCG/2 ML VIAL ONE (09:54)
[2021-01-24] MEDS: SEVELAMER CARBONATE 800 MG TABLET PO SCH ×3 (10:06→17:27)
[2021-01-24] MEDS: DORZOLAMIDE/TIMOLOL OPH SOLN 10 ML BOTTLE BOTH EYES SCH ×2 (10:06→20:53)
[2021-01-24] MEDS: SODIUM CHLORIDE 0.9% 1,000 ML IV SCH (10:06)
[2021-01-24] MEDS: amLODIPine 10 MG TABLET PO SCH (10:06)
[2021-01-24] MEDS: PANTOPRAZOLE 40 MG TABLET PO SCH (10:07)
[2021-01-24] MEDS ORDERED: DEXTROSE 50% 25 GM/50 ML VIAL IV PRN (11:27)
[2021-01-24] MEDS ORDERED: GLUCAGON 1 MG VIAL IM PRN (11:27)
[2021-01-24] MEDS: ENOXAPARIN 30 MG/0.3 ML SYRINGE SUBCUT SCH (18:26)
[2021-01-25 05:30] LABS: Basophils % 0.3 % (0.0-0.8); Eosinophils # 0.2 10*3/uL (0.0-0.87); Eosinophils % 3.1 % (0.00-10.9); Hematocrit 32.8 VOL% (35.7-47.0); Hemoglobin 10.5 GM/DL (12.0-16.0); Immature Granulocytes % 0.3 %; Immature Granulocytes Absolute 0.02 #; Lymphocytes # 1.3 10*3/uL (1.4-4.0); Lymphocytes % 19.1 % (21.3-54.2); Mean Corpuscular Volume 101.5 FL (87-102); Mean Platelet Volume 9.7 FL (9.6-12.0); Monocytes % 13.3 % (1.7-12.7); Neutrophils % 63.9 % (38.7-73.9); Platelet Count 181 T/CUMM (130-400); Red Blood Count 3.23 MC/CUMM (3.8-5.5); Red Cell Distribution Width 13.4 % (9.3-17.3); White Blood Count 6.5 T/CUMM (4-12)
[2021-01-25] MEDS: LEVOTHYROXINE 75 MCG TABLET PO SCH (05:43)
[2021-01-25 06:40] LABS: Calcium 9.7 MG/DL (8.5-10.1); Osmolality,Calculated 279.1 MOS/KG (273-304); Potassium 4.1 MMOL/L (3.5-5.1)
[2021-01-25] MEDS: ALBUTEROL 2.5 MG/3 ML NEB RESP TX SCH (07:16)
[2021-01-25] MEDS: PANTOPRAZOLE 40 MG TABLET PO SCH (09:36)
[2021-01-25] MEDS: amLODIPine 10 MG TABLET PO SCH (09:36)
[2021-01-25] MEDS: SEVELAMER CARBONATE 800 MG TABLET PO SCH (09:36)
[2021-01-25] MEDS: INSULIN GLARGINE 100 UNIT/ML SUBCUT SCH (09:36)
[2021-01-25] MEDS: DORZOLAMIDE/TIMOLOL OPH SOLN 10 ML BOTTLE BOTH EYES SCH (09:36)
[2021-01-25] MEDS: INSULIN LISPRO 100 UNIT/ML SUBCUT SCH (09:49)
[2021-01-25] MEDS: SODIUM CHLORIDE 0.9% 1,000 ML IV SCH (09:49)
[2021-01-25 11:36] VITALS: BP 134/67
== END 2021-01-25 12:41 | disposition home health service (06) | DRG 242 ==
LOC: EDUNIT# → EDBD → N.ED 11:38 → N.EDINP 14:13 → N.TELEN 15:04
PROVIDERS: ADMIT Internal Medicine; ATTEND Internal Medicine

== ENCOUNTER 2021-04-06 12:02 | Inpatient (IN) ==
[2021-04-06] MEDS ORDERED: ALBUTEROL NEB SOLN 5 MG/ML 20 ML/BOTTLE CONT NEB SCH (13:00)
[2021-04-06 13:32] LABS: ABG Base Excess 4.2 MMOL/L (-2.5-2.5); ABG HCO3 29.9 MMOL/L (20-26); ABG Oxygen Saturation 96.8 % (95-100); ABG PCO2 50.4 MM HG (35-48); ABG PH 7.391 (7.35-7.45); ABG PO2 90.7 MM HG (80-95); ABG TCO2 31.4 MMOL/L (23-27); Allen Test Positive
[2021-04-06 14:04] LABS: Basophils % 0.1 % (0.0-0.8); Eosinophils % 0.5 % (0.00-10.9); Hematocrit 29.7 VOL% (35.7-47.0); Hemoglobin 9.7 GM/DL (12.0-16.0); Immature Granulocytes % 0.4 %; Immature Granulocytes Absolute 0.03 #; Lymphocytes # 0.8 10*3/uL (1.4-4.0); Lymphocytes % 9.9 % (21.3-54.2); Mean Corpuscular HGB Conc 32.7 GM/DL (32-36); Mean Platelet Volume 9.4 FL (9.6-12.0); Monocytes % 6.1 % (1.7-12.7); Platelet Count 227 T/CUMM (130-400); Red Cell Distribution Width 15.4 % (9.3-17.3); White Blood Count 8.1 T/CUMM (4-12)
[2021-04-06 14:19] LABS: INR 1.1; PT Patient Result 12.1 SECS (10.5-12.0); Partial Thromboplastin Time 33.3 SECS (23.8-32.1)
[2021-04-06 14:22] LABS: Albumin 3.4 G/DL (3.4-5.0); Bilirubin,Total 0.7 MG/DL (0.20-1.00); Calcium 10.3 MG/DL (8.5-10.1); Osmolality,Calculated 281.7 MOS/KG (273-304); Potassium 3.5 MMOL/L (3.5-5.1); Total Protein 8.2 G/DL (6.4-8.2)
[2021-04-06] MEDS ORDERED: DEXTROSE 50% 25 GM/50 ML VIAL IV PRN (15:14)
[2021-04-06] MEDS ORDERED: GLUCAGON 1 MG VIAL IM PRN ×2 (15:14)
[2021-04-06] MEDS ORDERED: DEXTROSE 50% 25 GM/50 ML SYRINGE IV PRN (15:23)
[2021-04-06] MEDS ORDERED: hydrALAZINE 20 MG/1 ML VIAL IV PRN (15:37)
[2021-04-06] MEDS ORDERED: AZITHROMYCIN INJ 500 MG in SODIUM CHLORIDE 0.9% 250 ML IV ONE (15:38)
[2021-04-06] MEDS: HEPARIN 5,000 UNIT/1 ML VIAL SUBCUT SCH (16:04)
[2021-04-06] MEDS: PANTOPRAZOLE 40 MG TABLET PO SCH (16:05)
[2021-04-06] MEDS: ALBUTEROL/IPRATROPIUM 3 ML NEB RESP TX SCH ×2 (19:00→23:00)
[2021-04-06] MEDS: INSULIN LISPRO 100 UNIT/ML SUBCUT SCH ×2 (20:52→23:33)
[2021-04-06] MEDS: cefTRIAXone 1,000 MG in SODIUM CHLORIDE 0.9% 100 ML IV SCH (23:28)
[2021-04-07] MEDS: ALBUTEROL/IPRATROPIUM 3 ML NEB RESP TX SCH ×5 (01:53→14:30)
[2021-04-07] MEDS: HEPARIN 5,000 UNIT/1 ML VIAL SUBCUT SCH ×2 (03:45→17:19)
[2021-04-07 06:39] LABS: Basophils % 0.3 % (0.0-0.8); Eosinophils # 0.1 10*3/uL (0.0-0.87); Eosinophils % 1.2 % (0.00-10.9); Hematocrit 28.3 VOL% (35.7-47.0); Immature Granulocytes % 0.5 %; Immature Granulocytes Absolute 0.03 #; Lymphocytes % 14.6 % (21.3-54.2); Mean Corpuscular HGB Conc 31.8 GM/DL (32-36); Mean Corpuscular Volume 100.7 FL (87-102); Mean Platelet Volume 9.3 FL (9.6-12.0); Monocytes % 9.6 % (1.7-12.7); Neutrophils % 73.8 % (38.7-73.9); Platelet Count 221 T/CUMM (130-400); Red Blood Count 2.81 MC/CUMM (3.8-5.5); Red Cell Distribution Width 15.9 % (9.3-17.3); White Blood Count 6.6 T/CUMM (4-12)
[2021-04-07 06:59] LABS: Bilirubin,Total 0.5 MG/DL (0.20-1.00); Osmolality,Calculated 277.5 MOS/KG (273-304); Potassium 3.1 MMOL/L (3.5-5.1); Total Protein 7.3 G/DL (6.4-8.2)
[2021-04-07] MEDS: INSULIN LISPRO 100 UNIT/ML SUBCUT SCH ×4 (07:24→20:35)
[2021-04-07] MEDS: PANTOPRAZOLE 40 MG TABLET PO SCH (08:44)
[2021-04-07] MEDS: AZITHROMYCIN INJ 500 MG in SODIUM CHLORIDE 0.9% 250 ML IV SCH (12:19)
[2021-04-07] MEDS ORDERED: AZITHROMYCIN INJ 250 MG in SODIUM CHLORIDE 0.9% 250 ML IV SCH (16:00)
[2021-04-07] MEDS ORDERED: ACETAMINOPHEN 325 MG TABLET PO PRN (17:10)
[2021-04-07] MEDS: cefTRIAXone 1,000 MG in SODIUM CHLORIDE 0.9% 100 ML IV SCH (20:35)
[2021-04-07] MEDS ORDERED: AMITRIPTYLINE 25 MG TABLET PO SCH (21:00)
[2021-04-08] MEDS: ALBUTEROL/IPRATROPIUM 3 ML NEB RESP TX SCH ×6 (00:30→11:13)
[2021-04-08] MEDS: HEPARIN 5,000 UNIT/1 ML VIAL SUBCUT SCH (03:23)
[2021-04-08 06:18] LABS: Basophils % 0.2 % (0.0-0.8); Eosinophils # 0.1 10*3/uL (0.0-0.87); Eosinophils % 1.9 % (0.00-10.9); Hematocrit 28.8 VOL% (35.7-47.0); Immature Granulocytes % 0.4 %; Immature Granulocytes Absolute 0.02 #; Lymphocytes # 1.1 10*3/uL (1.4-4.0); Lymphocytes % 21.1 % (21.3-54.2); Mean Corpuscular HGB Conc 31.3 GM/DL (32-36); Mean Corpuscular Volume 104.7 FL (87-102); Mean Platelet Volume 9.8 FL (9.6-12.0); Monocytes % 12.4 % (1.7-12.7); Platelet Count 219 T/CUMM (130-400); Red Blood Count 2.75 MC/CUMM (3.8-5.5); Red Cell Distribution Width 15.8 % (9.3-17.3); White Blood Count 5.3 T/CUMM (4-12)
[2021-04-08 06:33] LABS: Calcium 9.6 MG/DL (8.5-10.1); Osmolality,Calculated 280.3 MOS/KG (273-304); Potassium 3.1 MMOL/L (3.5-5.1)
[2021-04-08] MEDS: INSULIN LISPRO 100 UNIT/ML SUBCUT SCH ×2 (07:29→11:57)
[2021-04-08] MEDS ORDERED: OLANZapine 2.5 MG TABLET PO SCH (09:00)
[2021-04-08] MEDS: PANTOPRAZOLE 40 MG TABLET PO SCH (10:58)
[2021-04-08 11:57] VITALS: BP 127/52
[2021-04-08] MEDS: AZITHROMYCIN INJ 500 MG in SODIUM CHLORIDE 0.9% 250 ML IV SCH (13:37)
== END 2021-04-08 14:00 | disposition home health service (06) | DRG 640 ==
LOC: EDBD → EDUNIT# → N.ED 12:02 → N.EDINP 15:14 → SUATTDRO 15:14 → N.EDINP 18:39 → N.3E 19:51
PROVIDERS: ADMIT Internal Medicine; ATTEND Internal Medicine

== ENCOUNTER 2021-05-15 02:00 | Inpatient (IN) ==
[2021-05-15] MEDS ORDERED: hydrALAZINE 20 MG/1 ML VIAL IV STA (02:49)
[2021-05-15] MEDS ORDERED: NITROGLYCERIN 2% OINT 1 INCH/GM PACK TOP STA (02:49)
[2021-05-15 03:50] LABS: INR 1.1
[2021-05-15 03:53] LABS: Albumin 3.2 G/DL (3.4-5.0); Bilirubin,Total 0.9 MG/DL (0.20-1.00); Calcium 9.9 MG/DL (8.5-10.1); Potassium 4.5 MMOL/L (3.5-5.1); Total Protein 8.3 G/DL (6.4-8.2)
[2021-05-15 04:03] LABS: Basophils % 0.3 % (0.0-0.8); Eosinophils % 0.5 % (0.00-10.9); Hematocrit 49.6 VOL% (35.7-47.0); Hemoglobin 15.3 GM/DL (12.0-16.0); Immature Granulocytes % 0.6 %; Immature Granulocytes Absolute 0.04 #; Lymphocytes # 0.4 10*3/uL (1.4-4.0); Lymphocytes % 5.8 % (21.3-54.2); Mean Corpuscular HGB Conc 30.8 GM/DL (32-36); Mean Corpuscular Volume 102.9 FL (87-102); Mean Platelet Volume 9.8 FL (9.6-12.0); Monocytes % 5.5 % (1.7-12.7); NRBC # 0.02 10*3/uL; Neutrophils % 87.3 % (38.7-73.9); Platelet Count 159 T/CUMM (130-400); Red Blood Count 4.82 MC/CUMM (3.8-5.5); Red Cell Distribution Width 16.2 % (9.3-17.3); White Blood Count 6.2 T/CUMM (4-12)
[2021-05-15] MEDS ORDERED: ONDANSETRON 4 MG/2 ML VIAL IV PRN (06:19)
[2021-05-15] MEDS ORDERED: guaiFENesin/DM ER 600-30 MG TABLET PO PRN (06:19)
[2021-05-15] MEDS ORDERED: GLUCAGON 1 MG VIAL IM PRN (06:19)
[2021-05-15] MEDS ORDERED: hydrALAZINE 20 MG/1 ML VIAL IV PRN (06:19)
[2021-05-15] MEDS ORDERED: DEXTROSE 10% 250 ML BAG IV PRN (06:28)
[2021-05-15] MEDS ORDERED: LEVOFLOXACIN INJ 500 MG/100 ML PREMIX IV ONE (07:00)
[2021-05-15] MEDS: ALBUTEROL/IPRATROPIUM 3 ML NEB RESP TX SCH ×3 (07:54→20:26)
[2021-05-15] MEDS: HEPARIN 5,000 UNIT/1 ML VIAL SUBCUT SCH ×2 (08:20→19:54)
[2021-05-15] MEDS ORDERED: PANTOPRAZOLE 40 MG TABLET PO SCH (09:00)
[2021-05-15] MEDS: INSULIN REGULAR 100 UNIT/ML SUBCUT SCH ×4 (12:03→21:13)
[2021-05-15] MEDS: amLODIPine 10 MG TABLET PO SCH (12:05)
[2021-05-15] MEDS ORDERED: MIDAZOLAM 2 MG/2 ML VIAL IV ONE (17:23)
[2021-05-15] MEDS: SEVELAMER CARBONATE 800 MG TABLET PO SCH ×2 (17:32→18:03)
[2021-05-15] MEDS: DOCUSATE SODIUM 100 MG CAPSULE PO SCH ×2 (17:32→21:14)
[2021-05-15] MEDS: MIDAZOLAM 100 MG in SODIUM CHLORIDE 0.9% 80 ML IV PRN (17:47)
[2021-05-15 17:52] LABS: Basophils % 0.3 % (0.0-0.8); Eosinophils # 0.1 10*3/uL (0.0-0.87); Eosinophils % 1.1 % (0.00-10.9); Hematocrit 33.7 VOL% (35.7-47.0); Hemoglobin 10.3 GM/DL (12.0-16.0); Immature Granulocytes % 0.8 %; Immature Granulocytes Absolute 0.05 #; Lymphocytes # 0.6 10*3/uL (1.4-4.0); Lymphocytes % 8.9 % (21.3-54.2); Mean Corpuscular HGB Conc 30.6 GM/DL (32-36); Mean Platelet Volume 9.3 FL (9.6-12.0); Monocytes % 9.4 % (1.7-12.7); NRBC # 0.04 10*3/uL; Neutrophils % 79.5 % (38.7-73.9); Platelet Count 208 T/CUMM (130-400); Red Blood Count 3.21 MC/CUMM (3.8-5.5); Red Cell Distribution Width 16.3 % (9.3-17.3); White Blood Count 6.3 T/CUMM (4-12)
[2021-05-15 18:01] LABS: Albumin 2.8 G/DL (3.4-5.0); Bilirubin,Total 0.8 MG/DL (0.20-1.00); Calcium 9.3 MG/DL (8.5-10.1); Osmolality,Calculated 289.1 MOS/KG (273-304); Total Protein 7.6 G/DL (6.4-8.2)
[2021-05-15 18:13] LABS: ABG Oxygen Saturation 96.4 % (95-100); ABG PCO2 50.6 MM HG (35-48); ABG PH 7.367 (7.35-7.45); ABG PO2 92.1 MM HG (80-95); ABG TCO2 26.7 MMOL/L (23-27)
[2021-05-15] MEDS: PIPERACILLIN/TAZOBACTAM 3,375 MG in SODIUM CHLORIDE 0.9% 100 ML IV SCH (19:56)
[2021-05-15] MEDS: AMITRIPTYLINE 25 MG TABLET PO SCH (21:14)
[2021-05-15] MEDS: OLANZapine 2.5 MG TABLET PO SCH (21:14)
[2021-05-15] MEDS: DORZOLAMIDE/TIMOLOL OPH SOLN 10 ML BOTTLE BOTH EYES SCH (22:26)
[2021-05-16] MEDS: ALBUTEROL/IPRATROPIUM 3 ML NEB RESP TX SCH ×4 (02:05→19:35)
[2021-05-16] MEDS: PIPERACILLIN/TAZOBACTAM 3,375 MG in SODIUM CHLORIDE 0.9% 100 ML IV SCH ×2 (05:36→17:54)
[2021-05-16] MEDS: HEPARIN 5,000 UNIT/1 ML VIAL SUBCUT SCH ×2 (05:37→17:55)
[2021-05-16] MEDS: LEVOTHYROXINE 75 MCG TABLET PO SCH (05:44)
[2021-05-16 06:27] LABS: Basophils % 0.2 % (0.0-0.8); Eosinophils # 0.1 10*3/uL (0.0-0.87); Eosinophils % 1.2 % (0.00-10.9); Hematocrit 31.4 VOL% (35.7-47.0); Hemoglobin 9.7 GM/DL (12.0-16.0); Immature Granulocytes % 0.6 %; Immature Granulocytes Absolute 0.03 #; Lymphocytes # 0.8 10*3/uL (1.4-4.0); Lymphocytes % 16.2 % (21.3-54.2); Mean Corpuscular HGB Conc 30.9 GM/DL (32-36); Mean Corpuscular Volume 102.6 FL (87-102); Mean Platelet Volume 9.4 FL (9.6-12.0); Monocytes % 11.5 % (1.7-12.7); NRBC # 0.02 10*3/uL; Neutrophils % 70.3 % (38.7-73.9); Platelet Count 182 T/CUMM (130-400); Red Blood Count 3.06 MC/CUMM (3.8-5.5); Red Cell Distribution Width 16.9 % (9.3-17.3)
[2021-05-16 06:46] LABS: Calcium 9.8 MG/DL (8.5-10.1); Osmolality,Calculated 288.1 MOS/KG (273-304); Potassium 3.7 MMOL/L (3.5-5.1)
[2021-05-16 06:56] LABS: Free T4 (Free Thyroxine) 1.17 NG/DL (0.76-1.46); Thyroid Stimulating Hormone 4.05 uIU/ml (0.358-3.74)
[2021-05-16] MEDS: INSULIN REGULAR 100 UNIT/ML SUBCUT SCH ×4 (08:15→20:15)
[2021-05-16] MEDS: amLODIPine 10 MG TABLET PO SCH (09:24)
[2021-05-16] MEDS: MULTIVITAMIN (BEROCCA) TABLET PO SCH (09:24)
[2021-05-16] MEDS: PANTOPRAZOLE 40 MG VIAL IV SCH (09:27)
[2021-05-16] MEDS: DORZOLAMIDE/TIMOLOL OPH SOLN 10 ML BOTTLE BOTH EYES SCH ×2 (09:27→20:28)
[2021-05-16] MEDS: DOCUSATE SODIUM 100 MG CAPSULE PO SCH ×2 (09:28→20:27)
[2021-05-16] MEDS: SEVELAMER CARBONATE 800 MG TABLET PO SCH ×3 (09:28→17:51)
[2021-05-16] MEDS: MIDAZOLAM 100 MG in SODIUM CHLORIDE 0.9% 80 ML IV PRN (12:28)
[2021-05-16] MEDS ORDERED: flumazeniL 0.5 MG/5 ML VIAL IV ONE ×2 (14:21→14:22)
[2021-05-16] MEDS: AMITRIPTYLINE 25 MG TABLET PO SCH (20:27)
[2021-05-16] MEDS: OLANZapine 2.5 MG TABLET PO SCH (20:27)
[2021-05-17] MEDS: ALBUTEROL/IPRATROPIUM 3 ML NEB RESP TX SCH ×4 (01:11→20:00)
[2021-05-17 04:44] LABS: ABG Base Excess 3.2 MMOL/L (-2.5-2.5); ABG HCO3 27.3 MMOL/L (20-26); ABG Oxygen Saturation 98.6 % (95-100); ABG PCO2 48.4 MM HG (35-48); ABG PH 7.385 (7.35-7.45); ABG TCO2 26.3 MMOL/L (23-27)
[2021-05-17] MEDS: PIPERACILLIN/TAZOBACTAM 3,375 MG in SODIUM CHLORIDE 0.9% 100 ML IV SCH ×2 (05:30→17:37)
[2021-05-17] MEDS: HEPARIN 5,000 UNIT/1 ML VIAL SUBCUT SCH ×2 (05:30→17:32)
[2021-05-17] MEDS: LEVOTHYROXINE 75 MCG TABLET PO SCH ×2 (05:30→06:11)
[2021-05-17] MEDS: INSULIN REGULAR 100 UNIT/ML SUBCUT SCH ×4 (07:22→20:28)
[2021-05-17 07:48] LABS: Basophils % 0.5 % (0.0-0.8); Eosinophils # 0.1 10*3/uL (0.0-0.87); Eosinophils % 1.6 % (0.00-10.9); Hematocrit 34.7 VOL% (35.7-47.0); Hemoglobin 10.5 GM/DL (12.0-16.0); Immature Granulocytes % 0.3 %; Immature Granulocytes Absolute 0.02 #; Lymphocytes % 15.1 % (21.3-54.2); Mean Corpuscular HGB Conc 30.3 GM/DL (32-36); Mean Corpuscular Volume 107.1 FL (87-102); Mean Platelet Volume 9.7 FL (9.6-12.0); Monocytes % 13.1 % (1.7-12.7); NRBC # 0.04 10*3/uL; Neutrophils % 69.4 % (38.7-73.9); Platelet Count 205 T/CUMM (130-400); Red Blood Count 3.24 MC/CUMM (3.8-5.5); Red Cell Distribution Width 17.4 % (9.3-17.3); White Blood Count 6.4 T/CUMM (4-12)
[2021-05-17 08:08] LABS: Calcium 9.4 MG/DL (8.5-10.1); Osmolality,Calculated 277.5 MOS/KG (273-304); Potassium 4.9 MMOL/L (3.5-5.1)
[2021-05-17] MEDS: PANTOPRAZOLE 40 MG VIAL IV SCH (08:46)
[2021-05-17] MEDS: SEVELAMER CARBONATE 800 MG TABLET PO SCH ×3 (08:50→17:32)
[2021-05-17] MEDS: LEVOFLOXACIN INJ 250 MG/50 ML PREMIX IV SCH (08:51)
[2021-05-17] MEDS: DORZOLAMIDE/TIMOLOL OPH SOLN 10 ML BOTTLE BOTH EYES SCH ×2 (08:56→20:27)
[2021-05-17] MEDS: amLODIPine 10 MG TABLET PO SCH ×2 (09:27→12:13)
[2021-05-17] MEDS: MULTIVITAMIN (BEROCCA) TABLET PO SCH ×2 (09:27→12:13)
[2021-05-17] MEDS: DOCUSATE SODIUM 100 MG CAPSULE PO SCH ×2 (09:27→20:27)
[2021-05-17] MEDS: AMITRIPTYLINE 25 MG TABLET PO SCH (20:27)
[2021-05-17] MEDS: OLANZapine 2.5 MG TABLET PO SCH (20:27)
[2021-05-18] MEDS: ALBUTEROL/IPRATROPIUM 3 ML NEB RESP TX SCH ×4 (01:16→18:59)
[2021-05-18 04:00] LABS: ABG Base Excess 1.9 MMOL/L (-2.5-2.5); ABG Oxygen Saturation 93.2 % (95-100); ABG PCO2 46.7 MM HG (35-48); ABG PH 7.379 (7.35-7.45); ABG PO2 71.8 MM HG (80-95); Allen Test Positive; Pt O2 Delivery Device BIPAP
[2021-05-18] MEDS: HEPARIN 5,000 UNIT/1 ML VIAL SUBCUT SCH ×2 (06:05→17:48)
[2021-05-18] MEDS: PIPERACILLIN/TAZOBACTAM 3,375 MG in SODIUM CHLORIDE 0.9% 100 ML IV SCH ×2 (06:06→17:47)
[2021-05-18] MEDS: LEVOTHYROXINE 75 MCG TABLET PO SCH (06:07)
[2021-05-18 06:40] LABS: Basophils % 0.3 % (0.0-0.8); Eosinophils # 0.1 10*3/uL (0.0-0.87); Eosinophils % 1.9 % (0.00-10.9); Hematocrit 37.4 VOL% (35.7-47.0); Hemoglobin 11.3 GM/DL (12.0-16.0); Immature Granulocytes % 1.2 %; Immature Granulocytes Absolute 0.07 #; Lymphocytes # 0.9 10*3/uL (1.4-4.0); Lymphocytes % 15.2 % (21.3-54.2); Mean Corpuscular HGB Conc 30.2 GM/DL (32-36); Mean Corpuscular Volume 105.4 FL (87-102); Mean Platelet Volume 9.7 FL (9.6-12.0); Monocytes % 13.2 % (1.7-12.7); NRBC # 0.03 10*3/uL; Neutrophils % 68.2 % (38.7-73.9); Platelet Count 216 T/CUMM (130-400); Red Blood Count 3.55 MC/CUMM (3.8-5.5); White Blood Count 5.7 T/CUMM (4-12)
[2021-05-18 06:59] LABS: Calcium 9.8 MG/DL (8.5-10.1); Osmolality,Calculated 279.7 MOS/KG (273-304); Potassium 4.7 MMOL/L (3.5-5.1)
[2021-05-18] MEDS: INSULIN REGULAR 100 UNIT/ML SUBCUT SCH ×4 (07:27→21:43)
[2021-05-18] MEDS: SEVELAMER CARBONATE 800 MG TABLET PO SCH (08:32)
[2021-05-18] MEDS: PANTOPRAZOLE 40 MG VIAL IV SCH (09:02)
[2021-05-18] MEDS: MULTIVITAMIN (BEROCCA) TABLET PO SCH (09:36)
[2021-05-18] MEDS: DOCUSATE SODIUM 100 MG CAPSULE PO SCH ×3 (09:36→21:43)
[2021-05-18] MEDS: DORZOLAMIDE/TIMOLOL OPH SOLN 10 ML BOTTLE BOTH EYES SCH ×2 (09:37→21:43)
[2021-05-18] MEDS: amLODIPine 10 MG TABLET PO SCH (13:08)
[2021-05-18] MEDS: LORazepam 2 MG/1 ML VIAL IV ONE (13:20)
[2021-05-18] MEDS: AMITRIPTYLINE 25 MG TABLET PO SCH (21:43)
[2021-05-18] MEDS: OLANZapine 2.5 MG TABLET PO SCH (21:43)
[2021-05-19] MEDS: ALBUTEROL/IPRATROPIUM 3 ML NEB RESP TX SCH ×4 (00:52→18:47)
[2021-05-19 04:18] LABS: ABG Base Excess 1.5 MMOL/L (-2.5-2.5); ABG HCO3 27.2 MMOL/L (20-26); ABG PCO2 46.9 MM HG (35-48); ABG PH 7.382 (7.35-7.45); ABG PO2 94.6 MM HG (80-95); ABG TCO2 28.7 MMOL/L (23-27); Allen Test Positive
[2021-05-19 04:19] LABS: ABG Oxygen Saturation 97.1 % (95-100)
[2021-05-19] MEDS: LEVOTHYROXINE 75 MCG TABLET PO SCH (05:52)
[2021-05-19] MEDS: HEPARIN 5,000 UNIT/1 ML VIAL SUBCUT SCH ×2 (05:53→18:03)
[2021-05-19] MEDS: PIPERACILLIN/TAZOBACTAM 3,375 MG in SODIUM CHLORIDE 0.9% 100 ML IV SCH ×2 (06:00→18:03)
[2021-05-19 06:03] LABS: Basophils % 0.3 % (0.0-0.8); Eosinophils # 0.1 10*3/uL (0.0-0.87); Eosinophils % 1.3 % (0.00-10.9); Hematocrit 37.3 VOL% (35.7-47.0); Hemoglobin 11.4 GM/DL (12.0-16.0); Immature Granulocytes Absolute 0.07 #; Lymphocytes # 0.7 10*3/uL (1.4-4.0); Lymphocytes % 10.9 % (21.3-54.2); Mean Corpuscular HGB Conc 30.6 GM/DL (32-36); Mean Corpuscular Volume 105.7 FL (87-102); Mean Platelet Volume 9.6 FL (9.6-12.0); Monocytes % 9.7 % (1.7-12.7); NRBC # 0.04 10*3/uL; Neutrophils % 76.8 % (38.7-73.9); Platelet Count 204 T/CUMM (130-400); Red Blood Count 3.53 MC/CUMM (3.8-5.5); Red Cell Distribution Width 17.2 % (9.3-17.3); White Blood Count 6.7 T/CUMM (4-12)
[2021-05-19 06:31] LABS: Calcium 9.9 MG/DL (8.5-10.1); Osmolality,Calculated 274.7 MOS/KG (273-304); Potassium 4.2 MMOL/L (3.5-5.1)
[2021-05-19] MEDS: INSULIN REGULAR 100 UNIT/ML SUBCUT SCH ×4 (08:45→21:42)
[2021-05-19] MEDS: MULTIVITAMIN (BEROCCA) TABLET PO SCH (09:24)
[2021-05-19] MEDS: LEVOFLOXACIN INJ 250 MG/50 ML PREMIX IV SCH (09:24)
[2021-05-19] MEDS: PANTOPRAZOLE 40 MG VIAL IV SCH (09:25)
[2021-05-19] MEDS: DORZOLAMIDE/TIMOLOL OPH SOLN 10 ML BOTTLE BOTH EYES SCH ×2 (09:25→21:42)
[2021-05-19] MEDS: amLODIPine 10 MG TABLET PO SCH (09:25)
[2021-05-19] MEDS: DOCUSATE SODIUM 100 MG CAPSULE PO SCH ×2 (09:25→21:42)
[2021-05-19] MEDS: OLANZapine 2.5 MG TABLET PO SCH (21:42)
[2021-05-19] MEDS: AMITRIPTYLINE 25 MG TABLET PO SCH (21:42)
[2021-05-20] MEDS: ALBUTEROL/IPRATROPIUM 3 ML NEB RESP TX SCH ×4 (00:52→18:37)
[2021-05-20] MEDS: PIPERACILLIN/TAZOBACTAM 3,375 MG in SODIUM CHLORIDE 0.9% 100 ML IV SCH (06:21)
[2021-05-20] MEDS: HEPARIN 5,000 UNIT/1 ML VIAL SUBCUT SCH ×2 (06:22→18:00)
[2021-05-20] MEDS: LEVOTHYROXINE 75 MCG TABLET PO SCH (06:22)
[2021-05-20] MEDS: INSULIN REGULAR 100 UNIT/ML SUBCUT SCH ×4 (08:00→22:18)
[2021-05-20 08:38] LABS: Basophils % 0.2 % (0.0-0.8); Eosinophils # 0.1 10*3/uL (0.0-0.87); Eosinophils % 0.9 % (0.00-10.9); Hematocrit 33.5 VOL% (35.7-47.0); Hemoglobin 10.5 GM/DL (12.0-16.0); Immature Granulocytes Absolute 0.06 #; Lymphocytes # 0.8 10*3/uL (1.4-4.0); Lymphocytes % 13.4 % (21.3-54.2); Mean Corpuscular HGB Conc 31.3 GM/DL (32-36); Mean Corpuscular Volume 103.4 FL (87-102); Mean Platelet Volume 9.8 FL (9.6-12.0); Monocytes % 5.9 % (1.7-12.7); NRBC # 0.05 10*3/uL; Neutrophils % 78.6 % (38.7-73.9); Platelet Count 173 T/CUMM (130-400); Red Blood Count 3.24 MC/CUMM (3.8-5.5); Red Cell Distribution Width 16.9 % (9.3-17.3); White Blood Count 5.8 T/CUMM (4-12)
[2021-05-20 09:05] LABS: Albumin 2.4 G/DL (3.4-5.0); Bilirubin,Total 0.6 MG/DL (0.20-1.00); Calcium 9.9 MG/DL (8.5-10.1); Potassium 4.1 MMOL/L (3.5-5.1); Total Protein 7.5 G/DL (6.4-8.2)
[2021-05-20] MEDS: DOCUSATE SODIUM 100 MG CAPSULE PO SCH ×2 (09:30→22:18)
[2021-05-20] MEDS: PANTOPRAZOLE 40 MG VIAL IV SCH (09:30)
[2021-05-20] MEDS: MULTIVITAMIN (BEROCCA) TABLET PO SCH (09:30)
[2021-05-20] MEDS: amLODIPine 10 MG TABLET PO SCH (10:23)
[2021-05-20] MEDS: DORZOLAMIDE/TIMOLOL OPH SOLN 10 ML BOTTLE BOTH EYES SCH ×2 (10:24→22:18)
[2021-05-20] MEDS: hydrALAZINE 25 MG TABLET PO SCH ×2 (15:32→22:18)
[2021-05-20] MEDS: OLANZapine 2.5 MG TABLET PO SCH (22:17)
[2021-05-20] MEDS: AMITRIPTYLINE 25 MG TABLET PO SCH (22:18)
[2021-05-21] MEDS: ALBUTEROL/IPRATROPIUM 3 ML NEB RESP TX SCH ×4 (01:00→20:26)
[2021-05-21] MEDS: LEVOTHYROXINE 75 MCG TABLET PO SCH (05:32)
[2021-05-21] MEDS: HEPARIN 5,000 UNIT/1 ML VIAL SUBCUT SCH ×2 (05:32→18:30)
[2021-05-21 05:50] LABS: Basophils % 0.1 % (0.0-0.8); Eosinophils # 0.1 10*3/uL (0.0-0.87); Hematocrit 34.9 VOL% (35.7-47.0); Hemoglobin 10.8 GM/DL (12.0-16.0); Immature Granulocytes % 0.9 %; Immature Granulocytes Absolute 0.06 #; Lymphocytes # 0.8 10*3/uL (1.4-4.0); Lymphocytes % 12.1 % (21.3-54.2); Mean Corpuscular HGB Conc 30.9 GM/DL (32-36); Mean Corpuscular Volume 104.8 FL (87-102); Mean Platelet Volume 9.9 FL (9.6-12.0); Monocytes % 13.5 % (1.7-12.7); NRBC # 0.03 10*3/uL; Neutrophils % 72.4 % (38.7-73.9); Platelet Count 180 T/CUMM (130-400); Red Blood Count 3.33 MC/CUMM (3.8-5.5); Red Cell Distribution Width 17.7 % (9.3-17.3)
[2021-05-21 06:09] LABS: Albumin 2.4 G/DL (3.4-5.0); Bilirubin,Total 0.6 MG/DL (0.20-1.00); Calcium 10.6 MG/DL (8.5-10.1); Potassium 4.2 MMOL/L (3.5-5.1); Total Protein 7.6 G/DL (6.4-8.2)
[2021-05-21] MEDS: INSULIN REGULAR 100 UNIT/ML SUBCUT SCH ×4 (07:38→22:58)
[2021-05-21] MEDS: LEVOFLOXACIN INJ 250 MG/50 ML PREMIX IV SCH (09:09)
[2021-05-21] MEDS: DOCUSATE SODIUM 100 MG CAPSULE PO SCH ×2 (09:09→21:55)
[2021-05-21] MEDS: amLODIPine 10 MG TABLET PO SCH (09:09)
[2021-05-21] MEDS: hydrALAZINE 25 MG TABLET PO SCH ×3 (09:09→21:55)
[2021-05-21] MEDS: MULTIVITAMIN (BEROCCA) TABLET PO SCH (09:09)
[2021-05-21] MEDS: PANTOPRAZOLE 40 MG VIAL IV SCH (09:10)
[2021-05-21] MEDS: DORZOLAMIDE/TIMOLOL OPH SOLN 10 ML BOTTLE BOTH EYES SCH ×2 (09:10→21:58)
[2021-05-21] MEDS: OLANZapine 2.5 MG TABLET PO SCH (21:55)
[2021-05-21] MEDS: AMITRIPTYLINE 25 MG TABLET PO SCH (21:55)
[2021-05-21] MEDS: ACETAMINOPHEN 325 MG TABLET PO PRN (21:59)
[2021-05-22] MEDS: ALBUTEROL/IPRATROPIUM 3 ML NEB RESP TX SCH ×4 (01:36→19:26)
[2021-05-22 05:21] LABS: Basophils % 0.3 % (0.0-0.8); Eosinophils # 0.1 10*3/uL (0.0-0.87); Eosinophils % 1.1 % (0.00-10.9); Hematocrit 34.9 VOL% (35.7-47.0); Hemoglobin 10.6 GM/DL (12.0-16.0); Immature Granulocytes Absolute 0.06 #; Lymphocytes % 16.4 % (21.3-54.2); Mean Corpuscular HGB Conc 30.4 GM/DL (32-36); Mean Corpuscular Volume 105.4 FL (87-102); Mean Platelet Volume 9.5 FL (9.6-12.0); Monocytes % 15.3 % (1.7-12.7); NRBC # 0.02 10*3/uL; Neutrophils % 65.9 % (38.7-73.9); Platelet Count 174 T/CUMM (130-400); Red Blood Count 3.31 MC/CUMM (3.8-5.5); Red Cell Distribution Width 17.4 % (9.3-17.3); White Blood Count 6.2 T/CUMM (4-12)
[2021-05-22] MEDS: HEPARIN 5,000 UNIT/1 ML VIAL SUBCUT SCH ×2 (05:53→17:39)
[2021-05-22] MEDS: LEVOTHYROXINE 75 MCG TABLET PO SCH (05:53)
[2021-05-22 05:57] LABS: Albumin 2.6 G/DL (3.4-5.0); Bilirubin,Total 1.7 MG/DL (0.20-1.00); Calcium 10.5 MG/DL (8.5-10.1); Osmolality,Calculated 286.3 MOS/KG (273-304); Total Protein 7.7 G/DL (6.4-8.2)
[2021-05-22] MEDS: MULTIVITAMIN (BEROCCA) TABLET PO SCH (09:17)
[2021-05-22] MEDS: amLODIPine 10 MG TABLET PO SCH (09:17)
[2021-05-22] MEDS: DOCUSATE SODIUM 100 MG CAPSULE PO SCH ×2 (09:18→22:16)
[2021-05-22] MEDS: DORZOLAMIDE/TIMOLOL OPH SOLN 10 ML BOTTLE BOTH EYES SCH ×2 (09:18→22:15)
[2021-05-22] MEDS: hydrALAZINE 25 MG TABLET PO SCH ×3 (09:18→22:14)
[2021-05-22] MEDS: PANTOPRAZOLE 40 MG VIAL IV SCH (09:19)
[2021-05-22] MEDS: INSULIN REGULAR 100 UNIT/ML SUBCUT SCH ×3 (12:46→22:17)
[2021-05-22] MEDS ORDERED: TUBERCULIN SKIN TEST 0.1 ML SYRINGE INTRADERM ONE (15:00)
[2021-05-22] MEDS: OLANZapine 2.5 MG TABLET PO SCH (22:14)
[2021-05-22] MEDS: AMITRIPTYLINE 25 MG TABLET PO SCH (22:14)
[2021-05-22] MEDS: ATORVASTATIN 40 MG TABLET PO SCH (22:14)
[2021-05-23] MEDS: ALBUTEROL/IPRATROPIUM 3 ML NEB RESP TX SCH ×4 (00:54→20:03)
[2021-05-23 05:08] LABS: Basophils % 0.3 % (0.0-0.8); Eosinophils # 0.1 10*3/uL (0.0-0.87); Eosinophils % 1.1 % (0.00-10.9); Hematocrit 33.4 VOL% (35.7-47.0); Hemoglobin 10.2 GM/DL (12.0-16.0); Immature Granulocytes % 0.9 %; Immature Granulocytes Absolute 0.07 #; Lymphocytes % 13.2 % (21.3-54.2); Mean Corpuscular HGB Conc 30.5 GM/DL (32-36); Mean Corpuscular Volume 105.7 FL (87-102); Mean Platelet Volume 9.4 FL (9.6-12.0); Monocytes % 14.8 % (1.7-12.7); Neutrophils % 69.7 % (38.7-73.9); Platelet Count 168 T/CUMM (130-400); Red Blood Count 3.16 MC/CUMM (3.8-5.5); Red Cell Distribution Width 17.4 % (9.3-17.3); White Blood Count 7.5 T/CUMM (4-12)
[2021-05-23 05:37] LABS: Alanine Aminotransferase < 6 U/L (13-56); Albumin 2.4 G/DL (3.4-5.0); Alkaline Phosphatase 98 U/L (45-117); Aspartate Amino Transferase 17 U/L (0-37); Blood Urea Nitrogen 43 MG/DL (7-18); Calcium 10.5 MG/DL (8.5-10.1); Carbon Dioxide 24 MMOL/L (21-32); Estimated Glom Filtration Rate 6 ML/MIN; Glucose 141 MG/DL (74-106); Osmolality,Calculated 289.5 MOS/KG (273-304); Potassium 4.8 MMOL/L (3.5-5.1); Sodium 139 MMOL/L (136-145); Total Protein 7.5 G/DL (6.4-8.2)
[2021-05-23] MEDS: LEVOTHYROXINE 75 MCG TABLET PO SCH (06:42)
[2021-05-23] MEDS: ASPIRIN EC 81 MG TABLET PO SCH (08:43)
[2021-05-23] MEDS: hydrALAZINE 25 MG TABLET PO SCH ×3 (08:43→21:50)
[2021-05-23] MEDS: MULTIVITAMIN (BEROCCA) TABLET PO SCH (08:43)
[2021-05-23] MEDS: amLODIPine 10 MG TABLET PO SCH (08:43)
[2021-05-23] MEDS: DOCUSATE SODIUM 100 MG CAPSULE PO SCH ×2 (08:44→21:43)
[2021-05-23] MEDS: PANTOPRAZOLE 40 MG VIAL IV SCH (08:48)
[2021-05-23] MEDS: LEVOFLOXACIN INJ 250 MG/50 ML PREMIX IV SCH (08:49)
[2021-05-23] MEDS: INSULIN REGULAR 100 UNIT/ML SUBCUT SCH ×4 (11:47→21:43)
[2021-05-23] MEDS: DORZOLAMIDE/TIMOLOL OPH SOLN 10 ML BOTTLE BOTH EYES SCH ×2 (11:47→21:44)
[2021-05-23] MEDS: ATORVASTATIN 40 MG TABLET PO SCH (21:43)
[2021-05-23] MEDS: AMITRIPTYLINE 25 MG TABLET PO SCH (21:43)
[2021-05-23] MEDS: OLANZapine 2.5 MG TABLET PO SCH (21:43)
[2021-05-24] MEDS: ALBUTEROL/IPRATROPIUM 3 ML NEB RESP TX SCH ×4 (00:04→19:35)
[2021-05-24] MEDS: LEVOTHYROXINE 75 MCG TABLET PO SCH (05:35)
[2021-05-24 07:10] LABS: Basophils % 0.1 % (0.0-0.8); Eosinophils # 0.1 10*3/uL (0.0-0.87); Eosinophils % 1.3 % (0.00-10.9); Hematocrit 35.4 VOL% (35.7-47.0); Hemoglobin 10.9 GM/DL (12.0-16.0); Immature Granulocytes % 0.5 %; Immature Granulocytes Absolute 0.04 #; Lymphocytes # 0.9 10*3/uL (1.4-4.0); Lymphocytes % 10.7 % (21.3-54.2); Mean Corpuscular HGB Conc 30.8 GM/DL (32-36); Mean Corpuscular Volume 106.3 FL (87-102); Mean Platelet Volume 9.7 FL (9.6-12.0); Monocytes % 12.8 % (1.7-12.7); Neutrophils % 74.6 % (38.7-73.9); Platelet Count 154 T/CUMM (130-400); Red Blood Count 3.33 MC/CUMM (3.8-5.5); Red Cell Distribution Width 17.3 % (9.3-17.3); White Blood Count 7.9 T/CUMM (4-12)
[2021-05-24 07:28] LABS: Hypochromia Slight
[2021-05-24 07:29] LABS: Macrocytosis 1+; Platelet Estimate Adequate
[2021-05-24 07:35] LABS: Alanine Aminotransferase < 6 U/L (13-56); Albumin 2.6 G/DL (3.4-5.0); Alkaline Phosphatase 96 U/L (45-117); Aspartate Amino Transferase 18 U/L (0-37); Bilirubin,Total < 0.39 MG/DL (0.20-1.00); Blood Urea Nitrogen 25 MG/DL (7-18); Calcium 10.6 MG/DL (8.5-10.1); Carbon Dioxide 27 MMOL/L (21-32); Estimated Glom Filtration Rate 9 ML/MIN; Glucose 88 MG/DL (74-106); Osmolality,Calculated 275.8 MOS/KG (273-304); Potassium 4.3 MMOL/L (3.5-5.1); Sodium 137 MMOL/L (136-145); Total Protein 7.8 G/DL (6.4-8.2)
[2021-05-24] MEDS: DOCUSATE SODIUM 100 MG CAPSULE PO SCH ×2 (09:00→21:13)
[2021-05-24] MEDS: MULTIVITAMIN (BEROCCA) TABLET PO SCH (09:00)
[2021-05-24] MEDS: ASPIRIN EC 81 MG TABLET PO SCH (09:00)
[2021-05-24] MEDS: hydrALAZINE 25 MG TABLET PO SCH ×3 (09:00→21:13)
[2021-05-24] MEDS: amLODIPine 10 MG TABLET PO SCH (09:01)
[2021-05-24] MEDS: PANTOPRAZOLE 40 MG VIAL IV SCH (09:01)
[2021-05-24] MEDS: DORZOLAMIDE/TIMOLOL OPH SOLN 10 ML BOTTLE BOTH EYES SCH ×2 (09:01→21:13)
[2021-05-24] MEDS: INSULIN REGULAR 100 UNIT/ML SUBCUT SCH ×4 (09:57→21:13)
[2021-05-24] MEDS: ATORVASTATIN 40 MG TABLET PO SCH (21:12)
[2021-05-24] MEDS: OLANZapine 2.5 MG TABLET PO SCH (21:12)
[2021-05-24] MEDS: AMITRIPTYLINE 25 MG TABLET PO SCH (21:13)
[2021-05-25] MEDS: ALBUTEROL/IPRATROPIUM 3 ML NEB RESP TX SCH ×4 (01:20→20:00)
[2021-05-25] MEDS: LEVOTHYROXINE 75 MCG TABLET PO SCH (05:39)
[2021-05-25] MEDS: MULTIVITAMIN (BEROCCA) TABLET PO SCH (08:17)
[2021-05-25] MEDS: DOCUSATE SODIUM 100 MG CAPSULE PO SCH ×2 (08:17→21:32)
[2021-05-25] MEDS: ASPIRIN EC 81 MG TABLET PO SCH (08:17)
[2021-05-25] MEDS: PANTOPRAZOLE 40 MG VIAL IV SCH (08:17)
[2021-05-25] MEDS: INSULIN REGULAR 100 UNIT/ML SUBCUT SCH ×4 (08:17→21:32)
[2021-05-25] MEDS: DORZOLAMIDE/TIMOLOL OPH SOLN 10 ML BOTTLE BOTH EYES SCH ×2 (08:18→21:32)
[2021-05-25 08:57] LABS: Basophils % 0.1 % (0.0-0.8); Eosinophils # 0.1 10*3/uL (0.0-0.87); Eosinophils % 1.4 % (0.00-10.9); Hematocrit 34.2 VOL% (35.7-47.0); Hemoglobin 10.5 GM/DL (12.0-16.0); Immature Granulocytes % 0.4 %; Immature Granulocytes Absolute 0.03 #; Lymphocytes # 1.1 10*3/uL (1.4-4.0); Lymphocytes % 16.1 % (21.3-54.2); Mean Corpuscular HGB Conc 30.7 GM/DL (32-36); Mean Corpuscular Volume 104.9 FL (87-102); Monocytes % 15.3 % (1.7-12.7); Neutrophils % 66.7 % (38.7-73.9); Platelet Count 187 T/CUMM (130-400); Red Blood Count 3.26 MC/CUMM (3.8-5.5); Red Cell Distribution Width 17.2 % (9.3-17.3)
[2021-05-25 09:06] LABS: Alanine Aminotransferase < 6 U/L (13-56); Albumin 2.5 G/DL (3.4-5.0); Alkaline Phosphatase 103 U/L (45-117); Aspartate Amino Transferase 9 U/L (0-37); Bilirubin,Total < 0.39 MG/DL (0.20-1.00); Blood Urea Nitrogen 40 MG/DL (7-18); Calcium 10.3 MG/DL (8.5-10.1); Carbon Dioxide 26 MMOL/L (21-32); Estimated Glom Filtration Rate 6 ML/MIN; Glucose 198 MG/DL (74-106); Osmolality,Calculated 288.8 MOS/KG (273-304); Potassium 4.6 MMOL/L (3.5-5.1); Sodium 137 MMOL/L (136-145); Total Protein 7.5 G/DL (6.4-8.2)
[2021-05-25] MEDS: hydrALAZINE 25 MG TABLET PO SCH ×3 (09:37→21:32)
[2021-05-25] MEDS: amLODIPine 10 MG TABLET PO SCH (09:37)
[2021-05-25] MEDS: ACETAMINOPHEN 325 MG TABLET PO PRN (10:55)
[2021-05-25] MEDS: ATORVASTATIN 40 MG TABLET PO SCH (21:32)
[2021-05-25] MEDS: OLANZapine 2.5 MG TABLET PO SCH (21:32)
[2021-05-25] MEDS: AMITRIPTYLINE 25 MG TABLET PO SCH (21:32)
[2021-05-26] MEDS: ALBUTEROL/IPRATROPIUM 3 ML NEB RESP TX SCH ×3 (01:50→13:40)
[2021-05-26 04:40] LABS: Basophils % 0.1 % (0.0-0.8); Eosinophils # 0.1 10*3/uL (0.0-0.87); Eosinophils % 1.8 % (0.00-10.9); Hematocrit 33.6 VOL% (35.7-47.0); Hemoglobin 10.2 GM/DL (12.0-16.0); Immature Granulocytes % 0.4 %; Immature Granulocytes Absolute 0.03 #; Lymphocytes # 1.1 10*3/uL (1.4-4.0); Lymphocytes % 14.2 % (21.3-54.2); Mean Corpuscular HGB Conc 30.4 GM/DL (32-36); Mean Corpuscular Volume 105.3 FL (87-102); Mean Platelet Volume 10.2 FL (9.6-12.0); Monocytes % 15.7 % (1.7-12.7); Neutrophils % 67.8 % (38.7-73.9); Platelet Count 188 T/CUMM (130-400); Red Blood Count 3.19 MC/CUMM (3.8-5.5); Red Cell Distribution Width 16.4 % (9.3-17.3); White Blood Count 7.4 T/CUMM (4-12)
[2021-05-26 05:05] LABS: Eosinophils 3 % (0-10); Hypochromia 1+; Lymphocytes 14 % (20-55); Microcytosis 1+; Platelet Estimate Adequate; Segmented Neutrophils 67 % (50-85); Total Cells Counted 100
[2021-05-26 05:12] LABS: Alanine Aminotransferase < 6 U/L (13-56); Albumin 2.2 G/DL (3.4-5.0); Alkaline Phosphatase 96 U/L (45-117); Aspartate Amino Transferase 19 U/L (0-37); Bilirubin,Total < 0.39 MG/DL (0.20-1.00); Blood Urea Nitrogen 30 MG/DL (7-18); Calcium 9.7 MG/DL (8.5-10.1); Carbon Dioxide 20 MMOL/L (21-32); Estimated Glom Filtration Rate 8 ML/MIN; Glucose 148 MG/DL (74-106); Potassium 4.7 MMOL/L (3.5-5.1); Sodium 136 MMOL/L (136-145); Total Protein 7.1 G/DL (6.4-8.2)
[2021-05-26] MEDS: LEVOTHYROXINE 75 MCG TABLET PO SCH (06:30)
[2021-05-26] MEDS: INSULIN REGULAR 100 UNIT/ML SUBCUT SCH ×2 (09:09→17:07)
[2021-05-26] MEDS: hydrALAZINE 25 MG TABLET PO SCH ×2 (09:43→17:09)
[2021-05-26] MEDS: ASPIRIN EC 81 MG TABLET PO SCH (09:43)
[2021-05-26] MEDS: MULTIVITAMIN (BEROCCA) TABLET PO SCH (09:43)
[2021-05-26] MEDS: amLODIPine 10 MG TABLET PO SCH (09:43)
[2021-05-26] MEDS: DORZOLAMIDE/TIMOLOL OPH SOLN 10 ML BOTTLE BOTH EYES SCH (09:46)
[2021-05-26] MEDS: DOCUSATE SODIUM 100 MG CAPSULE PO SCH (09:46)
[2021-05-26] MEDS: PANTOPRAZOLE 40 MG VIAL IV SCH (09:47)
[2021-05-26 17:08] VITALS: BP 131/69
== END 2021-05-26 17:06 | disposition swing bed (61) | DRG 208 ==
LOC: SUATTDRO → EDUNIT# → EDBD → N.EDINP 02:00 → N.ED 02:00 → SUATTDRO 06:19 → N.EDINP 14:45 → N.ICU 17:22 → SUATTDRO 18:23 → N.3E 05-21 02:37
PROVIDERS: ADMIT Hospitalist; ATTEND Internal Medicine

== ENCOUNTER 2022-03-13 17:06 | Inpatient (IN) ==
[2022-03-13 18:38] LABS: Basophils % 0.1 % (0.0-0.8); Hematocrit 33.2 VOL% (35.7-47.0); Hemoglobin 10.3 GM/DL (12.0-16.0); Immature Granulocytes % 0.7 %; Immature Granulocytes Absolute 0.12 #; Lymphocytes # 0.4 10*3/uL (1.4-4.0); Lymphocytes % 2.5 % (21.3-54.2); Mean Corpuscular Volume 108.1 FL (87-102); Mean Platelet Volume 10.2 FL (9.6-12.0); Monocytes % 5.7 % (1.7-12.7); Platelet Count 184 T/CUMM (130-400); Red Blood Count 3.07 MC/CUMM (3.8-5.5); Red Cell Distribution Width 15.6 % (9.3-17.3); White Blood Count 17.1 T/CUMM (4-12)
[2022-03-13 18:45] LABS: INR 1.3; PT Patient Result 14.1 SECS (10.1-12.1)
[2022-03-13 18:50] LABS: Alanine Aminotransferase 12 U/L (13-56); Albumin 2.5 G/DL (3.4-5.0); Alkaline Phosphatase 109 U/L (45-117); Aspartate Amino Transferase 9 U/L (0-37); Blood Urea Nitrogen 35 MG/DL (7-18); Calcium 10.4 MG/DL (8.5-10.1); Carbon Dioxide 28 MMOL/L (21-32); Chloride 101 MMOL/L (98-107); Glucose 202 MG/DL (74-106); Osmolality,Calculated 286.8 MOS/KG (273-304); Potassium 3.5 MMOL/L (3.5-5.1); Sodium 137 MMOL/L (136-145); Total Protein 7.4 G/DL (6.4-8.2)
[2022-03-13 18:59] LABS: Band Neutrophils 20 % (0-10); Lymphocytes 3 % (20-55); Platelet Estimate Adequate; Total Cells Counted 100
[2022-03-13 19:00] LABS: Macrocytosis 2+
[2022-03-13 19:05] LABS: ABG Base Excess 3.3 MMOL/L (-2.5-2.5); ABG HCO3 27.3 MMOL/L (20-26); ABG Oxygen Saturation 91.7 % (95-100); ABG PCO2 46.6 MM HG (35-48); ABG PH 7.398 (7.35-7.45); ABG PO2 67.3 MM HG (80-95); ABG TCO2 26.2 MMOL/L (23-27)
[2022-03-13 19:33] LABS: Glucose,Urine (UA) 100 mg/dL (Negative); Ketones,Urine Negative (Negative); Nitrite,Urine Negative (Negative); Protein,Urine >=300 mg/dL (Negative); Urine Appearance Cloudy (Clear); Urine Color Yellow (Yellow); Urine Specific Gravity 1.025 (1.001-1.035)
[2022-03-13 19:34] LABS: Bilirubin,Urine Small mg/dL (Negative); Blood, Urine Large mg/dL (Negative); Urine Urobilinogen 0.2 eU/dL (<2.0)
[2022-03-13 19:39] LABS: RBC,Urine 211 /HPF (0-4); Squamous Epithelial Cell,Urine Many /HPF (0-10)
[2022-03-13] MEDS ORDERED: VANCOMYCIN INJ 1,000 MG in SODIUM CHLORIDE 0.9% 250 ML IV STA (19:40)
[2022-03-13] MEDS ORDERED: GLUCAGON 1 MG VIAL IM PRN ×2 (20:02)
[2022-03-13] MEDS ORDERED: DEXTROSE 10% 250 ML BAG IV PRN (20:02)
[2022-03-13] MEDS ORDERED: DEXTROSE 50% 25 GM/50 ML VIAL IV PRN ×2 (20:02)
[2022-03-13] MEDS ORDERED: LACTATED RINGERS 250 ML IV ONE (20:05)
[2022-03-13 20:13] LABS: Barbiturates Screen,Urine Negative (Negative); Benzodiazepines Screen,Urine Negative (Negative); Cannabinoid Screen,Urine Negative (Negative); Opiate Screen,Urine Negative (Negative); Phencyclidine Screen,Urine Negative (Negative)
[2022-03-13] MEDS ORDERED: ONDANSETRON 4 MG/2 ML VIAL IV PRN (20:23)
[2022-03-13] MEDS ORDERED: cefTRIAXone 1,000 MG in SODIUM CHLORIDE 0.9% 100 ML IV SCH (20:30)
[2022-03-13] MEDS: ENOXAPARIN 30 MG/0.3 ML SYRINGE SUBCUT SCH (23:09)
[2022-03-14] MEDS: AZITHROMYCIN INJ 500 MG in SODIUM CHLORIDE 0.9% 250 ML IV SCH ×2 (01:15→20:35)
[2022-03-14] MEDS: INSULIN LISPRO 100 UNIT/ML SUBCUT SCH ×5 (02:10→23:00)
[2022-03-14 04:33] LABS: Basophils % 0.1 % (0.0-0.8); Eosinophils % 0.3 % (0.00-10.9); Hematocrit 30.8 VOL% (35.7-47.0); Hemoglobin 9.7 GM/DL (12.0-16.0); Immature Granulocytes % 0.4 %; Immature Granulocytes Absolute 0.06 #; Lymphocytes # 0.6 10*3/uL (1.4-4.0); Lymphocytes % 4.6 % (21.3-54.2); Mean Corpuscular HGB Conc 31.5 GM/DL (32-36); Mean Corpuscular Volume 107.3 FL (87-102); Mean Platelet Volume 10.2 FL (9.6-12.0); Monocytes # 0.9 10*3/uL (0.11-0.8); Monocytes % 6.3 % (1.7-12.7); Neutrophils % 88.3 % (38.7-73.9); Platelet Count 161 T/CUMM (130-400); Red Blood Count 2.87 MC/CUMM (3.8-5.5); Red Cell Distribution Width 15.5 % (9.3-17.3); White Blood Count 13.9 T/CUMM (4-12)
[2022-03-14] MEDS ORDERED: SODIUM CHLORIDE 0.9% 250 ML IV STA (04:40)
[2022-03-14 04:55] LABS: Band Neutrophils 2 % (0-10); Lymphocytes 6 % (20-55); Platelet Estimate Adequate; Total Cells Counted 100
[2022-03-14 04:56] LABS: Hypochromia Slight; Macrocytosis Slight
[2022-03-14 05:02] LABS: Albumin 2.4 G/DL (3.4-5.0); Bilirubin,Direct 0.23 MG/DL (0.0-0.20); Bilirubin,Indirect 0.2 MG/DL (0.0-1.0); Bilirubin,Total 0.4 MG/DL (0.20-1.00); Calcium 9.6 MG/DL (8.5-10.1); Osmolality,Calculated 286.2 MOS/KG (273-304); Potassium 4.3 MMOL/L (3.5-5.1); Thyroid Stimulating Hormone 1.25 uIU/ml (0.358-3.74); Total Protein 6.6 G/DL (6.4-8.2)
[2022-03-14] MEDS: PANTOPRAZOLE 40 MG TABLET PO SCH (09:28)
[2022-03-14] MEDS: LEVOTHYROXINE 88 MCG TABLET PO SCH (09:29)
[2022-03-14] MEDS: ATORVASTATIN 40 MG TABLET PO SCH (09:31)
[2022-03-14] MEDS ORDERED: GLUCAGON 1 MG VIAL IM PRN (11:19)
[2022-03-14] MEDS ORDERED: DEXTROSE 50% 25 GM/50 ML VIAL IV PRN (11:19)
[2022-03-14] MEDS: SEVELAMER CARBONATE 800 MG TABLET PO SCH ×2 (12:50→17:28)
[2022-03-14] MEDS: DORZOLAMIDE/TIMOLOL OPH SOLN 10 ML BOTTLE BOTH EYES SCH ×2 (17:27→20:35)
[2022-03-14] MEDS: ceFAZolin 2,000 MG/50 ML DUPLEX IV SCH (17:28)
[2022-03-14] MEDS: ENOXAPARIN 30 MG/0.3 ML SYRINGE SUBCUT SCH (20:35)
[2022-03-15] MEDS ORDERED: IBUPROFEN 100 MG/5 ML UDCUP PO PRN (00:39)
[2022-03-15] MEDS ORDERED: ACETAMINOPHEN 325 MG TABLET PO PRN (00:40)
[2022-03-15 05:08] LABS: Basophils % 0.1 % (0.0-0.8); Eosinophils # 0.1 10*3/uL (0.0-0.87); Eosinophils % 1.4 % (0.00-10.9); Hematocrit 29.7 VOL% (35.7-47.0); Hemoglobin 9.3 GM/DL (12.0-16.0); Immature Granulocytes % 0.5 %; Immature Granulocytes Absolute 0.04 #; Lymphocytes # 0.8 10*3/uL (1.4-4.0); Lymphocytes % 10.1 % (21.3-54.2); Mean Corpuscular HGB Conc 31.3 GM/DL (32-36); Mean Corpuscular Volume 108.8 FL (87-102); Mean Platelet Volume 10.6 FL (9.6-12.0); Monocytes # 0.9 10*3/uL (0.11-0.8); Monocytes % 10.9 % (1.7-12.7); Platelet Count 150 T/CUMM (130-400); Red Blood Count 2.73 MC/CUMM (3.8-5.5); Red Cell Distribution Width 15.2 % (9.3-17.3); White Blood Count 7.8 T/CUMM (4-12)
[2022-03-15 05:27] LABS: Calcium 9.7 MG/DL (8.5-10.1); Osmolality,Calculated 290.8 MOS/KG (273-304); Potassium 4.2 MMOL/L (3.5-5.1)
[2022-03-15] MEDS: LEVOTHYROXINE 88 MCG TABLET PO SCH (06:30)
[2022-03-15] MEDS: PANTOPRAZOLE 40 MG TABLET PO SCH (08:56)
[2022-03-15] MEDS: SEVELAMER CARBONATE 800 MG TABLET PO SCH ×3 (08:56→16:48)
[2022-03-15] MEDS: DORZOLAMIDE/TIMOLOL OPH SOLN 10 ML BOTTLE BOTH EYES SCH ×2 (08:56→22:14)
[2022-03-15] MEDS: ATORVASTATIN 40 MG TABLET PO SCH (08:56)
[2022-03-15] MEDS: INSULIN LISPRO 100 UNIT/ML SUBCUT SCH ×4 (08:57→22:22)
[2022-03-15] MEDS: AZITHROMYCIN INJ 500 MG in SODIUM CHLORIDE 0.9% 250 ML IV SCH (22:15)
[2022-03-15] MEDS: ENOXAPARIN 30 MG/0.3 ML SYRINGE SUBCUT SCH (22:15)
[2022-03-16 05:04] LABS: Basophils % 0.3 % (0.0-0.8); Eosinophils # 0.1 10*3/uL (0.0-0.87); Eosinophils % 1.9 % (0.00-10.9); Hemoglobin 9.1 GM/DL (12.0-16.0); Immature Granulocytes % 0.6 %; Immature Granulocytes Absolute 0.04 #; Lymphocytes # 1.1 10*3/uL (1.4-4.0); Lymphocytes % 14.9 % (21.3-54.2); Mean Corpuscular HGB Conc 31.4 GM/DL (32-36); Mean Corpuscular Volume 107.8 FL (87-102); Mean Platelet Volume 10.6 FL (9.6-12.0); Monocytes # 0.7 10*3/uL (0.11-0.8); Monocytes % 9.7 % (1.7-12.7); Neutrophils % 72.6 % (38.7-73.9); Platelet Count 175 T/CUMM (130-400); Red Blood Count 2.69 MC/CUMM (3.8-5.5); Red Cell Distribution Width 15.3 % (9.3-17.3); White Blood Count 7.2 T/CUMM (4-12)
[2022-03-16 05:18] LABS: Calcium 10.2 MG/DL (8.5-10.1); Potassium 4.3 MMOL/L (3.5-5.1)
[2022-03-16] MEDS: LEVOTHYROXINE 88 MCG TABLET PO SCH (06:29)
[2022-03-16] MEDS: INSULIN LISPRO 100 UNIT/ML SUBCUT SCH ×4 (08:43→22:00)
[2022-03-16] MEDS: DORZOLAMIDE/TIMOLOL OPH SOLN 10 ML BOTTLE BOTH EYES SCH ×2 (10:33→21:59)
[2022-03-16] MEDS: PANTOPRAZOLE 40 MG TABLET PO SCH (10:33)
[2022-03-16] MEDS: SEVELAMER CARBONATE 800 MG TABLET PO SCH ×3 (10:33→17:39)
[2022-03-16] MEDS: ATORVASTATIN 40 MG TABLET PO SCH (10:33)
[2022-03-16] MEDS: ENOXAPARIN 30 MG/0.3 ML SYRINGE SUBCUT SCH (22:00)
[2022-03-17 04:59] LABS: Basophils % 0.1 % (0.0-0.8); Eosinophils # 0.1 10*3/uL (0.0-0.87); Eosinophils % 1.8 % (0.00-10.9); Hematocrit 29.1 VOL% (35.7-47.0); Immature Granulocytes % 0.9 %; Immature Granulocytes Absolute 0.06 #; Mean Corpuscular HGB Conc 30.9 GM/DL (32-36); Mean Corpuscular Volume 108.6 FL (87-102); Mean Platelet Volume 10.9 FL (9.6-12.0); Monocytes # 0.6 10*3/uL (0.11-0.8); Neutrophils % 74.2 % (38.7-73.9); Platelet Count 194 T/CUMM (130-400); Red Blood Count 2.68 MC/CUMM (3.8-5.5); White Blood Count 6.8 T/CUMM (4-12)
[2022-03-17 05:26] LABS: Calcium 10.3 MG/DL (8.5-10.1); Osmolality,Calculated 276.8 MOS/KG (273-304); Potassium 4.1 MMOL/L (3.5-5.1)
[2022-03-17] MEDS: LEVOTHYROXINE 88 MCG TABLET PO SCH (06:01)
[2022-03-17] MEDS: SEVELAMER CARBONATE 800 MG TABLET PO SCH ×3 (08:18→16:54)
[2022-03-17] MEDS: ATORVASTATIN 40 MG TABLET PO SCH (08:18)
[2022-03-17] MEDS: PANTOPRAZOLE 40 MG TABLET PO SCH (08:18)
[2022-03-17] MEDS: INSULIN LISPRO 100 UNIT/ML SUBCUT SCH ×4 (10:25→21:46)
[2022-03-17] MEDS ORDERED: CLOTRIMAZOLE/BETAMETHASONE LOTION 30 ML BOTTLE TOP SCH (12:15)
[2022-03-17] MEDS: DORZOLAMIDE/TIMOLOL OPH SOLN 10 ML BOTTLE BOTH EYES SCH ×2 (14:23→20:07)
[2022-03-17] MEDS: ENOXAPARIN 30 MG/0.3 ML SYRINGE SUBCUT SCH (20:08)
[2022-03-17] MEDS: CLOTRIMAZOLE/BETAMETHASONE CREAM 15 GM TUBE TOP SCH (20:08)
[2022-03-17] MEDS: diphenhydrAMINE CAP 25 MG CAPSULE PO PRN (20:10)
[2022-03-18] MEDS: LEVOTHYROXINE 88 MCG TABLET PO SCH (06:12)
[2022-03-18 06:17] LABS: Basophils % 0.3 % (0.0-0.8); Eosinophils # 0.1 10*3/uL (0.0-0.87); Eosinophils % 1.7 % (0.00-10.9); Immature Granulocytes % 0.6 %; Immature Granulocytes Absolute 0.04 #; Lymphocytes # 1.1 10*3/uL (1.4-4.0); Lymphocytes % 15.8 % (21.3-54.2); Mean Platelet Volume 10.7 FL (9.6-12.0); Monocytes # 0.7 10*3/uL (0.11-0.8); Monocytes % 9.8 % (1.7-12.7); Neutrophils % 71.8 % (38.7-73.9); Platelet Count 199 T/CUMM (130-400); Red Blood Count 2.66 MC/CUMM (3.8-5.5); Red Cell Distribution Width 14.9 % (9.3-17.3); White Blood Count 6.7 T/CUMM (4-12)
[2022-03-18 06:58] LABS: Alanine Aminotransferase < 6 U/L (13-56); Albumin 2.6 G/DL (3.4-5.0); Alkaline Phosphatase 140 U/L (45-117); Aspartate Amino Transferase 16 U/L (0-37); Bilirubin,Total < 0.39 MG/DL (0.20-1.00); Blood Urea Nitrogen 36 MG/DL (7-18); Calcium 10.2 MG/DL (8.5-10.1); Carbon Dioxide 27 MMOL/L (21-32); Chloride 103 MMOL/L (98-107); Glucose 127 MG/DL (74-106); Potassium 4.5 MMOL/L (3.5-5.1); Sodium 136 MMOL/L (136-145); Total Protein 7.1 G/DL (6.4-8.2)
[2022-03-18] MEDS: INSULIN LISPRO 100 UNIT/ML SUBCUT SCH ×4 (07:11→20:54)
[2022-03-18] MEDS: SEVELAMER CARBONATE 800 MG TABLET PO SCH ×3 (10:29→17:07)
[2022-03-18] MEDS: PANTOPRAZOLE 40 MG TABLET PO SCH (10:29)
[2022-03-18] MEDS: DORZOLAMIDE/TIMOLOL OPH SOLN 10 ML BOTTLE BOTH EYES SCH ×2 (10:29→20:54)
[2022-03-18] MEDS: CLOTRIMAZOLE/BETAMETHASONE CREAM 15 GM TUBE TOP SCH ×2 (10:29→20:55)
[2022-03-18] MEDS: ATORVASTATIN 40 MG TABLET PO SCH (10:29)
[2022-03-18] MEDS: ENOXAPARIN 30 MG/0.3 ML SYRINGE SUBCUT SCH (20:55)
[2022-03-19 05:59] LABS: Basophils % 0.3 % (0.0-0.8); Eosinophils # 0.1 10*3/uL (0.0-0.87); Eosinophils % 1.3 % (0.00-10.9); Hematocrit 29.7 VOL% (35.7-47.0); Hemoglobin 9.2 GM/DL (12.0-16.0); Immature Granulocytes % 0.6 %; Immature Granulocytes Absolute 0.05 #; Lymphocytes % 12.5 % (21.3-54.2); Mean Corpuscular Volume 109.2 FL (87-102); Mean Platelet Volume 11.1 FL (9.6-12.0); Monocytes # 0.9 10*3/uL (0.11-0.8); Monocytes % 11.2 % (1.7-12.7); Neutrophils % 74.1 % (38.7-73.9); Platelet Count 213 T/CUMM (130-400); Red Blood Count 2.72 MC/CUMM (3.8-5.5); White Blood Count 7.8 T/CUMM (4-12)
[2022-03-19 06:17] LABS: Alanine Aminotransferase < 6 U/L (13-56); Albumin 2.6 G/DL (3.4-5.0); Alkaline Phosphatase 147 U/L (45-117); Aspartate Amino Transferase 15 U/L (0-37); Blood Urea Nitrogen 24 MG/DL (7-18); Carbon Dioxide 29 MMOL/L (21-32); Chloride 103 MMOL/L (98-107); Glucose 75 MG/DL (74-106); Osmolality,Calculated 279.5 MOS/KG (273-304); Potassium 4.1 MMOL/L (3.5-5.1); Sodium 139 MMOL/L (136-145); Total Protein 7.3 G/DL (6.4-8.2)
[2022-03-19] MEDS: INSULIN LISPRO 100 UNIT/ML SUBCUT SCH ×4 (07:58→21:04)
[2022-03-19] MEDS: PANTOPRAZOLE 40 MG TABLET PO SCH (09:22)
[2022-03-19] MEDS: ATORVASTATIN 40 MG TABLET PO SCH (09:22)
[2022-03-19] MEDS: DORZOLAMIDE/TIMOLOL OPH SOLN 10 ML BOTTLE BOTH EYES SCH ×2 (09:22→21:04)
[2022-03-19] MEDS: LEVOTHYROXINE 88 MCG TABLET PO SCH (09:22)
[2022-03-19] MEDS: SEVELAMER CARBONATE 800 MG TABLET PO SCH ×3 (09:22→17:09)
[2022-03-19] MEDS: CLOTRIMAZOLE/BETAMETHASONE CREAM 15 GM TUBE TOP SCH ×2 (09:22→21:04)
[2022-03-19] MEDS: ceFAZolin 2,000 MG/50 ML DUPLEX IV SCH (17:08)
[2022-03-19] MEDS: ENOXAPARIN 30 MG/0.3 ML SYRINGE SUBCUT SCH (21:04)
[2022-03-20 05:19] LABS: Basophils % 0.3 % (0.0-0.8); Eosinophils # 0.1 10*3/uL (0.0-0.87); Eosinophils % 1.2 % (0.00-10.9); Hematocrit 29.4 VOL% (35.7-47.0); Hemoglobin 9.1 GM/DL (12.0-16.0); Immature Granulocytes % 0.9 %; Immature Granulocytes Absolute 0.06 #; Lymphocytes # 0.9 10*3/uL (1.4-4.0); Mean Corpuscular Volume 109.3 FL (87-102); Mean Platelet Volume 10.1 FL (9.6-12.0); Monocytes # 0.7 10*3/uL (0.11-0.8); Monocytes % 10.3 % (1.7-12.7); Neutrophils % 73.3 % (38.7-73.9); Platelet Count 223 T/CUMM (130-400); Red Blood Count 2.69 MC/CUMM (3.8-5.5); White Blood Count 6.7 T/CUMM (4-12)
[2022-03-20 05:34] LABS: Alanine Aminotransferase < 6 U/L (13-56); Albumin 2.7 G/DL (3.4-5.0); Alkaline Phosphatase 138 U/L (45-117); Aspartate Amino Transferase 12 U/L (0-37); Blood Urea Nitrogen 35 MG/DL (7-18); Calcium 10.4 MG/DL (8.5-10.1); Carbon Dioxide 28 MMOL/L (21-32); Chloride 101 MMOL/L (98-107); Glucose 163 MG/DL (74-106); Potassium 4.6 MMOL/L (3.5-5.1); Sodium 136 MMOL/L (136-145); Total Protein 7.3 G/DL (6.4-8.2)
[2022-03-20] MEDS: LEVOTHYROXINE 88 MCG TABLET PO SCH (05:36)
[2022-03-20] MEDS: INSULIN LISPRO 100 UNIT/ML SUBCUT SCH ×4 (07:36→22:06)
[2022-03-20] MEDS: DORZOLAMIDE/TIMOLOL OPH SOLN 10 ML BOTTLE BOTH EYES SCH ×2 (08:31→22:05)
[2022-03-20] MEDS: SEVELAMER CARBONATE 800 MG TABLET PO SCH ×3 (08:31→16:47)
[2022-03-20] MEDS: CLOTRIMAZOLE/BETAMETHASONE CREAM 15 GM TUBE TOP SCH ×2 (08:32→22:05)
[2022-03-20] MEDS: PANTOPRAZOLE 40 MG TABLET PO SCH (08:32)
[2022-03-20] MEDS: ATORVASTATIN 40 MG TABLET PO SCH (08:32)
[2022-03-20] MEDS: ENOXAPARIN 30 MG/0.3 ML SYRINGE SUBCUT SCH (22:05)
[2022-03-21 05:06] LABS: Basophils % 0.2 % (0.0-0.8); Eosinophils # 0.1 10*3/uL (0.0-0.87); Eosinophils % 0.8 % (0.00-10.9); Hematocrit 30.1 VOL% (35.7-47.0); Hemoglobin 9.1 GM/DL (12.0-16.0); Immature Granulocytes Absolute 0.06 #; Lymphocytes # 0.9 10*3/uL (1.4-4.0); Lymphocytes % 14.5 % (21.3-54.2); Mean Corpuscular HGB Conc 30.2 GM/DL (32-36); Mean Corpuscular Volume 110.3 FL (87-102); Monocytes # 0.7 10*3/uL (0.11-0.8); Monocytes % 10.8 % (1.7-12.7); Neutrophils % 72.7 % (38.7-73.9); Platelet Count 219 T/CUMM (130-400); Red Blood Count 2.73 MC/CUMM (3.8-5.5); Red Cell Distribution Width 15.2 % (9.3-17.3); White Blood Count 6.1 T/CUMM (4-12)
[2022-03-21 05:29] LABS: Alanine Aminotransferase < 6 U/L (13-56); Albumin 2.7 G/DL (3.4-5.0); Alkaline Phosphatase 136 U/L (45-117); Aspartate Amino Transferase 10 U/L (0-37); Blood Urea Nitrogen 29 MG/DL (7-18); Calcium 10.2 MG/DL (8.5-10.1); Carbon Dioxide 29 MMOL/L (21-32); Chloride 102 MMOL/L (98-107); Glucose 213 MG/DL (74-106); Osmolality,Calculated 284.8 MOS/KG (273-304); Potassium 4.1 MMOL/L (3.5-5.1); Sodium 137 MMOL/L (136-145); Total Protein 7.5 G/DL (6.4-8.2)
[2022-03-21 05:42] LABS: Platelet Estimate Normal
[2022-03-21] MEDS: ATORVASTATIN 40 MG TABLET PO SCH (09:27)
[2022-03-21] MEDS: SEVELAMER CARBONATE 800 MG TABLET PO SCH ×3 (09:27→16:00)
[2022-03-21] MEDS: LEVOTHYROXINE 88 MCG TABLET PO SCH (09:27)
[2022-03-21] MEDS: PANTOPRAZOLE 40 MG TABLET PO SCH (09:27)
[2022-03-21] MEDS: DORZOLAMIDE/TIMOLOL OPH SOLN 10 ML BOTTLE BOTH EYES SCH ×2 (09:28→21:19)
[2022-03-21] MEDS: CLOTRIMAZOLE/BETAMETHASONE CREAM 15 GM TUBE TOP SCH ×2 (09:28→21:19)
[2022-03-21] MEDS: INSULIN LISPRO 100 UNIT/ML SUBCUT SCH ×4 (09:29→21:18)
[2022-03-21] MEDS: ceFAZolin 2,000 MG/50 ML DUPLEX IV SCH (16:01)
[2022-03-21] MEDS: ENOXAPARIN 30 MG/0.3 ML SYRINGE SUBCUT SCH (21:18)
[2022-03-22 05:23] LABS: Basophils % 0.3 % (0.0-0.8); Eosinophils # 0.1 10*3/uL (0.0-0.87); Eosinophils % 0.7 % (0.00-10.9); Hematocrit 30.8 VOL% (35.7-47.0); Hemoglobin 9.6 GM/DL (12.0-16.0); Immature Granulocytes % 0.8 %; Immature Granulocytes Absolute 0.06 #; Lymphocytes # 0.9 10*3/uL (1.4-4.0); Lymphocytes % 12.3 % (21.3-54.2); Mean Corpuscular HGB Conc 31.2 GM/DL (32-36); Mean Corpuscular Volume 108.8 FL (87-102); Mean Platelet Volume 10.2 FL (9.6-12.0); Monocytes # 0.7 10*3/uL (0.11-0.8); Monocytes % 9.3 % (1.7-12.7); Neutrophils % 76.6 % (38.7-73.9); Platelet Count 242 T/CUMM (130-400); Red Blood Count 2.83 MC/CUMM (3.8-5.5); Red Cell Distribution Width 14.9 % (9.3-17.3); White Blood Count 7.7 T/CUMM (4-12)
[2022-03-22] MEDS: LEVOTHYROXINE 88 MCG TABLET PO SCH (05:33)
[2022-03-22 05:46] LABS: Alanine Aminotransferase < 6 U/L (13-56); Albumin 2.8 G/DL (3.4-5.0); Alkaline Phosphatase 144 U/L (45-117); Aspartate Amino Transferase 11 U/L (0-37); Blood Urea Nitrogen 39 MG/DL (7-18); Calcium 10.5 MG/DL (8.5-10.1); Carbon Dioxide 27 MMOL/L (21-32); Chloride 101 MMOL/L (98-107); Glucose 204 MG/DL (74-106); Osmolality,Calculated 284.1 MOS/KG (273-304); Potassium 4.4 MMOL/L (3.5-5.1); Sodium 135 MMOL/L (136-145); Total Protein 7.8 G/DL (6.4-8.2)
[2022-03-22] MEDS: INSULIN LISPRO 100 UNIT/ML SUBCUT SCH ×4 (08:59→20:46)
[2022-03-22] MEDS: PANTOPRAZOLE 40 MG TABLET PO SCH (09:00)
[2022-03-22] MEDS: SEVELAMER CARBONATE 800 MG TABLET PO SCH ×3 (09:00→16:11)
[2022-03-22] MEDS: ATORVASTATIN 40 MG TABLET PO SCH (09:00)
[2022-03-22] MEDS: DORZOLAMIDE/TIMOLOL OPH SOLN 10 ML BOTTLE BOTH EYES SCH ×2 (09:03→20:46)
[2022-03-22] MEDS: CLOTRIMAZOLE/BETAMETHASONE CREAM 15 GM TUBE TOP SCH ×2 (09:03→20:47)
[2022-03-22] MEDS: ENOXAPARIN 30 MG/0.3 ML SYRINGE SUBCUT SCH (20:46)
[2022-03-22] MEDS: diphenhydrAMINE CAP 25 MG CAPSULE PO PRN (20:48)
[2022-03-23] MEDS: LEVOTHYROXINE 88 MCG TABLET PO SCH (05:31)
[2022-03-23] MEDS: diphenhydrAMINE CAP 25 MG CAPSULE PO PRN ×3 (05:32→21:45)
[2022-03-23 06:14] LABS: Basophils % 0.2 % (0.0-0.8); Eosinophils # 0.1 10*3/uL (0.0-0.87); Eosinophils % 0.8 % (0.00-10.9); Hematocrit 32.8 VOL% (35.7-47.0); Hemoglobin 9.9 GM/DL (12.0-16.0); Immature Granulocytes % 0.9 %; Immature Granulocytes Absolute 0.08 #; Lymphocytes % 10.5 % (21.3-54.2); Mean Corpuscular HGB Conc 30.2 GM/DL (32-36); Mean Corpuscular Volume 112.7 FL (87-102); Mean Platelet Volume 11.5 FL (9.6-12.0); Monocytes # 0.7 10*3/uL (0.11-0.8); Monocytes % 7.1 % (1.7-12.7); Neutrophils % 80.5 % (38.7-73.9); Platelet Count 191 T/CUMM (130-400); Red Blood Count 2.91 MC/CUMM (3.8-5.5); Red Cell Distribution Width 15.8 % (9.3-17.3); White Blood Count 9.2 T/CUMM (4-12)
[2022-03-23 06:58] LABS: Potassium 5.5 MMOL/L (3.5-5.1)
[2022-03-23 07:00] LABS: Calcium 10.3 MG/DL (8.5-10.1)
[2022-03-23] MEDS: ATORVASTATIN 40 MG TABLET PO SCH (09:15)
[2022-03-23] MEDS: PANTOPRAZOLE 40 MG TABLET PO SCH (09:15)
[2022-03-23] MEDS: CLOTRIMAZOLE/BETAMETHASONE CREAM 15 GM TUBE TOP SCH ×2 (09:16→21:43)
[2022-03-23] MEDS: INSULIN LISPRO 100 UNIT/ML SUBCUT SCH ×4 (09:16→21:43)
[2022-03-23] MEDS: DORZOLAMIDE/TIMOLOL OPH SOLN 10 ML BOTTLE BOTH EYES SCH ×2 (09:16→21:43)
[2022-03-23] MEDS: SEVELAMER CARBONATE 800 MG TABLET PO SCH ×3 (09:16→18:24)
[2022-03-23] MEDS: ENOXAPARIN 30 MG/0.3 ML SYRINGE SUBCUT SCH (21:42)
[2022-03-24 05:12] LABS: Basophils % 0.2 % (0.0-0.8); Eosinophils # 0.1 10*3/uL (0.0-0.87); Eosinophils % 0.9 % (0.00-10.9); Hematocrit 29.5 VOL% (35.7-47.0); Hemoglobin 9.1 GM/DL (12.0-16.0); Immature Granulocytes % 0.7 %; Immature Granulocytes Absolute 0.06 #; Lymphocytes % 12.8 % (21.3-54.2); Mean Corpuscular HGB Conc 30.8 GM/DL (32-36); Mean Corpuscular Volume 108.5 FL (87-102); Mean Platelet Volume 9.7 FL (9.6-12.0); Monocytes # 0.6 10*3/uL (0.11-0.8); Monocytes % 7.6 % (1.7-12.7); Neutrophils % 77.8 % (38.7-73.9); Platelet Count 215 T/CUMM (130-400); Red Blood Count 2.72 MC/CUMM (3.8-5.5); Red Cell Distribution Width 15.8 % (9.3-17.3); White Blood Count 8.1 T/CUMM (4-12)
[2022-03-24 05:36] LABS: Alanine Aminotransferase < 6 U/L (13-56); Albumin 2.7 G/DL (3.4-5.0); Alkaline Phosphatase 137 U/L (45-117); Aspartate Amino Transferase 13 U/L (0-37); Blood Urea Nitrogen 29 MG/DL (7-18); Calcium 10.2 MG/DL (8.5-10.1); Carbon Dioxide 30 MMOL/L (21-32); Chloride 106 MMOL/L (98-107); Glucose 107 MG/DL (74-106); Osmolality,Calculated 286.3 MOS/KG (273-304); Potassium 4.2 MMOL/L (3.5-5.1); Sodium 141 MMOL/L (136-145); Total Protein 7.6 G/DL (6.4-8.2)
[2022-03-24] MEDS: LEVOTHYROXINE 88 MCG TABLET PO SCH (06:25)
[2022-03-24] MEDS ORDERED: POLYETHYLENE GLYCOL POWDER 17 GM PACK PO SCH (09:00)
[2022-03-24] MEDS: INSULIN LISPRO 100 UNIT/ML SUBCUT SCH ×3 (09:07→12:08)
[2022-03-24] MEDS: PANTOPRAZOLE 40 MG TABLET PO SCH (09:47)
[2022-03-24] MEDS: CLOTRIMAZOLE/BETAMETHASONE CREAM 15 GM TUBE TOP SCH (09:47)
[2022-03-24] MEDS: SEVELAMER CARBONATE 800 MG TABLET PO SCH ×2 (09:47→12:08)
[2022-03-24] MEDS: DORZOLAMIDE/TIMOLOL OPH SOLN 10 ML BOTTLE BOTH EYES SCH (09:47)
[2022-03-24] MEDS: ATORVASTATIN 40 MG TABLET PO SCH (09:47)
[2022-03-24 11:43] VITALS: BP 127/56
== END 2022-03-24 14:31 | disposition home or self-care (01) | DRG 314 ==
LOC: EDUNIT# → EDBD → N.ED 17:06 → SUATTDRO 20:02 → N.EDINP 20:02 → N.5E 03-14 07:58
PROVIDERS: ADMIT Internal Medicine; ATTEND Internal Medicine